=== PATIENT | female | born 1960 | race Caucasian/White ===

== ENCOUNTER → 2020-10-30 11:05 | Outpatient (BNVA) | payer OTHER, SELFPAY | PROVIDERS: Visit Provider Physician Assistant | DX: S39.012A Strain of muscle, fascia and tendon of lower back, initial encounter (principal); X50.9XXA Other and unspecified overexertion or strenuous movements or postures, initial encounter | CPT/HCPCS: 99202 ==

== ENCOUNTER → 2020-11-02 10:54 | Outpatient (BNVA) | payer OTHER, SELFPAY | PROVIDERS: Visit Provider Internal Medicine | DX: S39.012A Strain of muscle, fascia and tendon of lower back, initial encounter (principal); X58.XXXA Exposure to other specified factors, initial encounter | CPT/HCPCS: 99213 ==

== ENCOUNTER → 2020-11-05 14:26 | Outpatient (BNVA) | payer OTHER, SELFPAY | PROVIDERS: Visit Provider Internal Medicine | DX: S39.012A Strain of muscle, fascia and tendon of lower back, initial encounter (principal); X58.XXXA Exposure to other specified factors, initial encounter | CPT/HCPCS: 99213 ==

== ENCOUNTER → 2020-11-15 12:53 | Outpatient (BNVA) | payer OTHER, SELFPAY | PROVIDERS: PCP Internal Medicine; Visit Provider Internal Medicine | DX: S39.012A Strain of muscle, fascia and tendon of lower back, initial encounter (principal); X58.XXXA Exposure to other specified factors, initial encounter | CPT/HCPCS: 99213 ==

== ENCOUNTER → 2020-11-26 13:08 | Outpatient (BNVA) | payer OTHER, SELFPAY | PROVIDERS: PCP Internal Medicine; Visit Provider Internal Medicine | DX: S39.012A Strain of muscle, fascia and tendon of lower back, initial encounter (principal); X58.XXXA Exposure to other specified factors, initial encounter | CPT/HCPCS: 99213 ==

== ENCOUNTER → 2020-12-06 13:02 | Outpatient (BNVA) | payer OTHER, SELFPAY | PROVIDERS: PCP Internal Medicine; Visit Provider Internal Medicine | DX: S39.012D Strain of muscle, fascia and tendon of lower back, subsequent encounter (principal); X58.XXXD Exposure to other specified factors, subsequent encounter; M51.36 Other intervertebral disc degeneration, lumbar region | CPT/HCPCS: 72110; 99214 ==

== ENCOUNTER → 2020-12-20 13:11 | Outpatient (BNVA) | payer OTHER, SELFPAY | PROVIDERS: PCP Internal Medicine; Visit Provider Internal Medicine | DX: M51.27 Other intervertebral disc displacement, lumbosacral region (principal) | CPT/HCPCS: 99213 ==

== ENCOUNTER 2021-01-10 13:00 | Outpatient (RCR) | payer OTHER, SELFPAY ==
--- NOTE | 2020-11-12 16:21 | MHC.PT.EP ---
[facility] [place] Office [place] Office [place] Office [address] [phone] F: [phone] F: [phone] F: [phone] F: [phone] Physical Therapy Plan of Care Date of Evaluation: 11/12/20 Date of Surgery: Diagnosis: LUMBAR STRAIN Assessment: LUDY PRESENTS WITH DIAGNOSIS OF LUMBAR STRAIN FOLLOWING TWISTING INJURY AT WORK TWO WEEKS AGO. IMPAIRMENTS INCLUDE DECREASED LUMBAR AND LE ROM, DECREASED CORE AND LE STRENGTH, ALTERED POSTURE AND POSITIONING, DECREASED SOFT TISSUE MOBILITY, INCREASED PAIN. FUNCTIONAL LIMITATIONS INCLUDE DECREASED ABILITY TO PERFORM ADLs AND HOMEMAKING TASKS, DECREASED ABILITY TO PERFORM LIFTING, BENDING, SQUATTING AND REACHING, DECREASED ABILITY TO PERFORM WORK TASKS, DECREASED PARTICIPATION IN RECREATIONAL ACTIVITIES. Frequency and Duration: The patient will be seen 2 X WEEK FOR 5 WEEKS Short Term Goals: INITIATE HEP AND PROMOTE SELF MANAGEMENT OF SYMPTOMS Fci Goals: IN 5 WEEKS: FULL, PAIN FREE ROM OF LOW BACK AND LEFT LE LIFTING FLOOR TO WAIST UP TO 25# WITH CORRECT BODY MECHANICS AND NO VERBAL CUING FULL LE STRENGTH, EQUAL LENARD RTW FT/FD WITH PAIN NO GREATER THAN 2/10 AT WORST. Treatment Plan: Modalities to reduce pain, spasms and effusion. Manual therapy to restore motion and function. Therapeutic exercise to improve strength and flexibility. Neuromuscular re-education for posture and balance. Therapeutic activities to return to functional activities of daily living. Electronically signed by: RJ DUKE PT, DPT Please sign and return to therapist. Thank you for your referral.
== END 2021-01-21 08:00 | disposition home or self-care (01) ==
LOC: HO.PT 13:00
PROVIDERS: PCP Internal Medicine; Visit Provider Internal Medicine
DX: S39.012A Strain of muscle, fascia and tendon of lower back, initial encounter (principal); Z98.890 Other specified postprocedural states
CPT/HCPCS: 97110; 97140; 97161; 97530; 97535

== ENCOUNTER → 2021-01-10 14:01 | Outpatient (BNVA) | payer OTHER, SELFPAY | PROVIDERS: PCP Internal Medicine; Visit Provider Internal Medicine | DX: S39.012D Strain of muscle, fascia and tendon of lower back, subsequent encounter (principal); X58.XXXD Exposure to other specified factors, subsequent encounter | CPT/HCPCS: 99213 ==

== ENCOUNTER 2021-03-27 11:29 | Emergency (ER) | payer OTHER, SELFPAY ==
[2021-03-27 11:35] VITALS: BP 104/57; PULSE 66; RESP 18; TEMP 36.7; O2SAT 97; BMI 21.4
--- NOTE | 2021-03-27 12:12 | ED.BACK ---
HPI - Back Pain/Injury General Chief Complaint: Back Pain/Injury Stated Complaint: BACK PAIN INJ WORK Time Seen by Provider: 03/27/21 12:12 History of Present Illness HPI Narrative: Patient complains of right-sided back pain which began at work when she lifted a heavy object She was pulling a garbage bag from the trash in normally it is not heavy but today someone put something very heavy in the bag and she felt immediate sharp pain in the right side of her back that has become severe There is no numbness weakness or tingling there is no radiation of the pain at this time, no changes to bowel or bladder no other injury Related Data Previous Rx's Medication Instructions Recorded acetaminophen 500 mg tablet 1,000 mg PO QID PRN #30 tab 03/27/21 cyclobenzaprine 5 mg tablet 5 mg PO TID PRN #14 tab 03/27/21 ibuprofen 600 mg tablet 600 mg PO Q6H PRN #20 tab 03/27/21 lidocaine 5 % topical patch 1 patch TOPICAL DAILY PRN #15 ea 03/27/21 oxycodone 5 mg tablet 5 mg PO Q6H PRN #10 tab 03/27/21 Allergies Allergy/AdvReac Type Severity Reaction Status Date / Time No Known Allergies Allergy Verified 03/27/21 11:35 Review of Systems Review of Systems: Positive for right side back pain Negatives are no fever no chills no dizziness no weakness no headache no neck pain no chest pain no shortness of breath no abdominal pain no dysuria no burning with urination or frequency of urination no incontinence no changes to bowel or bladder no weakness no loss of sensation no radiation of pain Yes all other systems are reviewed and are negative PMFSH Past Medical History Source: nursing notes reviewed Medical History (Updated 03/27/21 @ 12:22 by KAYLYN Canchola) Migraines Surgical History (Updated 03/27/21 @ 11:39 by Christy Vanessa RN) History of back surgery Social History Social History Advance Directives: Yes Advance Directives Information Provided: Yes Advance Directives on File: No Patient : No Physical Exam Vital Signs: Vital Signs: Last Vital Signs Temp 98.1 F 03/27/21 11:35 Pulse 66 03/27/21 11:35 Resp 18 03/27/21 11:35 BP 104/57 L 03/27/21 11:35 Pulse Ox 97 03/27/21 11:35 Body Mass Index 21.4 General appearance no acute distress Head is normocephalic atraumatic Neck is supple The chest no respiratory distress The abdomen is soft nontender The back had right lower lumbar paraspinal tenderness no midline tenderness, pain is easily reproduced with movement, there is no CVA tenderness, the skin is normal no redness no rash no wound Extremities is full range of motion x4 Neuro is no focal motor or sensory deficit, patient can walk on toes, can walk on heels can squat Course Course Course Narrative: Patient with back pain after injury lifting something at work this morning is referred to work connection and treated for symptomatic relief and is discharged Discharge Plan Discharge Clinical Impression: Strain of lumbar region Patient Disposition: Home, Self-Care Additional Instructions: Follow with work connection for work related injury Return any time any worse condition or concerns Prescriptions: New acetaminophen 500 mg tablet 1,000 mg PO QID PRN (Reason: pain) Qty: 30 RF: 0 cyclobenzaprine 5 mg tablet 5 mg PO TID PRN (Reason: muscle spasm) Qty: 14 RF: 0 lidocaine 5 % adhesive patch,medicated 1 patch topical DAILY PRN (Reason: back pain) Qty: 15 RF: 0 oxycodone 5 mg tablet 5 mg PO Q6H PRN (Reason: pain) Qty: 10 RF: 0 ibuprofen 600 mg tablet 600 mg PO Q6H PRN (Reason: pain) Qty: 20 RF: 0 Referrals: [facility] [Provider Group] - 2 days (Back injury from lifting at work) Stand Alone Forms: Work/School Release
[2021-03-27] MEDS: Acetaminophen 325 MG TABLET 975 MG PO (12:17)
== END 2021-03-27 12:50 | disposition home or self-care (01) ==
PROVIDERS: Emergency Provider Emergency Medicine; PCP Internal Medicine
DX: S39.012A Strain of muscle, fascia and tendon of lower back, initial encounter (principal); X50.0XXA Overexertion from strenuous movement or load, initial encounter; Y93.F9 Activity, other caregiving; Y92.538 Other ambulatory health services establishments as the place of occurrence of the external cause; Y99.0 Civilian activity done for income or pay
CPT/HCPCS: 99283; 99284

== ENCOUNTER → 2021-03-29 09:18 | Outpatient (BNVA) | payer OTHER, SELFPAY | PROVIDERS: PCP Internal Medicine; Visit Provider Physician Assistant Medical | DX: S39.012A Strain of muscle, fascia and tendon of lower back, initial encounter (principal); X50.0XXA Overexertion from strenuous movement or load, initial encounter | CPT/HCPCS: 72110; 99203 ==

== ENCOUNTER → 2021-04-02 09:43 | Outpatient (BNVA) | payer OTHER, SELFPAY | PROVIDERS: PCP Internal Medicine; Visit Provider Physician Assistant Medical | DX: S39.012D Strain of muscle, fascia and tendon of lower back, subsequent encounter (principal); X58.XXXD Exposure to other specified factors, subsequent encounter | CPT/HCPCS: 99213 ==

== ENCOUNTER → 2021-04-11 09:39 | Outpatient (BNVA) | payer OTHER, SELFPAY | PROVIDERS: PCP Internal Medicine; Visit Provider Physician Assistant Medical | DX: S39.012D Strain of muscle, fascia and tendon of lower back, subsequent encounter (principal); X58.XXXD Exposure to other specified factors, subsequent encounter | CPT/HCPCS: 99213 ==

== ENCOUNTER → 2021-04-23 09:53 | Outpatient (BNVA) | payer OTHER, SELFPAY | PROVIDERS: PCP Internal Medicine; Visit Provider Physician Assistant Medical | DX: S39.012D Strain of muscle, fascia and tendon of lower back, subsequent encounter (principal); X58.XXXD Exposure to other specified factors, subsequent encounter | CPT/HCPCS: 99213 ==

== ENCOUNTER 2021-05-07 09:00 | Outpatient (RCR) | payer OTHER, SELFPAY ==
--- NOTE | 2021-04-05 16:06 | MHC.PT.EP ---
[facility] [place] Office [place] Office [place] Office [address] Rajwinder Harvey [address] [phone] F: [phone] F: [phone] F: [phone] F: [phone] Physical Therapy Plan of Care Date of Evaluation: Date of Surgery: Diagnosis: Acute R Lumbar Strain Assessment: Pt is a 60yo F who presents to PT with R low back pain after lifting at work. She recently received PT for a similar injury to L low back which has since resolved. She presents today with current impairments in pain, ROM, strength, muscle length, soft tissue restrictions, and body mechanics. She is limited functionally by prolonged standing, ambulation, bending, and squatting. She is an excellent candidate for skilled PT services to address current impairments and facilitate return to PLOF. Frequency and Duration: The patient will be seen 2x/week, 5 weeks Short Term Goals: Pt will be I with HEP to promote self management of symptoms Pt will report pain < 5/10 after functional mobility Horticultural Manager Goals: Pt will demonstrate full, pain-free ROM in all planes of lumbar spine. Pt will tolerate standing >30 min with pain < 2/10 to assist with work-related tasks. Pt will demonstrate improvements in functional mobility as evidenced by statistically significant improvement in Modified Oswestry Low Back Pain Disability Questionnaire Treatment Plan: Modalities to reduce pain, spasms and effusion. Manual therapy to restore motion and function. Therapeutic exercise to improve strength and flexibility. Neuromuscular re-education for posture and balance. Therapeutic activities to return to functional activities of daily living. Electronically signed by: Nancy Gray, PT, DPT Please sign and return to therapist. Thank you for your referral.
--- NOTE | 2021-05-07 10:18 | MHC.PT.DC ---
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 HER OSWESTRY SCORE TODAY AT D/C IS 0/50 AND AT EVAL IT WAS 19/50. Electronically signed by: Mary Sanches,PT Please sign and return to therapist. Thank you for your referral.
== END 2021-05-07 10:18 | disposition home or self-care (01) ==
LOC: HO.PT 09:00
PROVIDERS: PCP Internal Medicine; Visit Provider Physician Assistant Medical
DX: S39.012D Strain of muscle, fascia and tendon of lower back, subsequent encounter (principal)
CPT/HCPCS: 97110; 97140; 97161; 97530

== ENCOUNTER → 2022-05-30 13:57 | Outpatient (BNVA) | payer OTHER, SELFPAY | PROVIDERS: PCP Internal Medicine; Visit Provider Internal Medicine | DX: M79.672 Pain in left foot (principal) | CPT/HCPCS: 73630; 99203 ==

== ENCOUNTER → 2022-06-03 08:00 | Outpatient (BNVA) | payer OTHER, SELFPAY | PROVIDERS: PCP Internal Medicine; Visit Provider Internal Medicine | DX: M79.672 Pain in left foot (principal) | CPT/HCPCS: 99213 ==

== ENCOUNTER 2023-05-14 06:42 | Emergency (ER) | payer OTHER, SELFPAY ==
--- NOTE | ~2023-05-14 | XR_ITS ---
EXAMINATION: XR KNEE, LEFT CLINICAL INFORMATION: Acute medial knee pain after fall COMPARISON: None available. TECHNIQUE: Four views of the left knee. FINDINGS: No fracture or joint effusion. Alignment is anatomic. Joint spaces are maintained. No abnormal soft tissue calcification. XR/XR knee LT 4V IMPRESSION: No acute fracture or subluxation of the left knee.
[2023-05-14 07:10] VITALS: BP 113/59; PULSE 667; RESP 18; TEMP 36.6; O2SAT 98; BMI 19.2
--- NOTE | 2023-05-14 07:34 | ED.LOWEXIN ---
HPI - Extremity Injury (Lower) General Chief Complaint: Extremity Injury, Lower Stated Complaint: fall, difficulty doing anything physical Time Seen by Provider: 05/14/23 07:31 Source: patient Mode of arrival: ambulatory Limitations: no limitations History of Present Illness HPI Narrative: 62-year-old female presents with left knee pain. Patient fell on concrete steps yesterday landing onto her left knee. Since then she has been having medial left knee pain. The pain is moderate to severe. Worse with ambulation and palpation. Pain does not radiate. There is no numbness or tingling. The pain is aching and sharp in nature. She denies any joint swelling. She denies any head trauma, loss of consciousness he. There is no prodrome. Related Data Previous Rx's Medication Instructions Recorded acetaminophen 500 mg tablet 1,000 mg (2 x 500 mg) PO QID PRN 03/27/21 pain #30 tabs cyclobenzaprine 5 mg tablet 5 mg PO TID PRN muscle spasm #14 03/27/21 tabs ibuprofen 600 mg tablet 600 mg PO Q6H PRN pain #20 tabs 03/27/21 lidocaine 5 % topical patch 1 patch topical DAILY PRN back 03/27/21 pain #15 ea oxycodone 5 mg tablet 5 mg PO Q6H PRN pain #10 tabs 03/27/21 Allergies Allergy/AdvReac Type Severity Reaction Status Date / Time No Known Allergies Allergy Verified 05/14/23 07:08 Review of Systems Review of Systems: CONSTITUTIONAL: Denies weight loss, fever and chills. HEENT: Denies changes in vision and hearing. RESPIRATORY: Denies SOB and cough. CV: Denies palpitations no CP. GI: Denies abdominal pain, nausea, vomiting and diarrhea. : Denies dysuria and urinary frequency. MSK: + myalgia and joint pain. SKIN: Denies rash and pruritus. NEUROLOGICAL: Denies headache and syncope. PSYCHIATRIC: Denies recent changes in mood. Denies anxiety and depression. All other ROS are negative unless in HPI PMFSH Past Medical History Medical History Migraines Surgical History History of back surgery Social History Social History Advance Directives: No Physical Exam Vital Signs: Vital Signs: Last Vital Signs Temp 98 F 05/14/23 07:10 Pulse 667 H 05/14/23 07:10 Resp 18 05/14/23 07:10 BP 113/59 L 05/14/23 07:10 Pulse Ox 98 05/14/23 07:10 O2 Del Method Room Air 05/14/23 07:10 BMI result Body Mass Index 19.2 GEN: Well developed, no acute distress, alert, oriented HEENT: Normocephalic, atraumatic, normal external ears, nose appears normal Eyes: Normal to appearance Neck: Supple, no lymphadenopathy Respiratory: Talks in complete sentences, no respiratory distress Extremities: No clubbing cyanosis or edema, small ecchymoses over medial aspect of left knee, no joint instability, no laxity of joint with medial and lateral stress or anterior or posterior drawer sign Neurologic: No focal neurologic deficits, cranial nerves 2-12 intact, gait normal Skin: No rash Course Course Course Narrative: The workup is complete. X-ray shows no evidence of fracture. Suspect bone contusion is post internal knee injury. However, will refer patient to Occupational Health. In addition, I will provide her with a work note. We discussed analgesia. I did offer crutches but she prefers not to have them Medical Decision Making Medical Decision Making MDM Narrative: Patient presents with acute left traumatic knee pain. Differential diagnosis includes fracture, sprain, strain, contusion, internal knee derangement. Plan x-ray. Referred to Occupational Health. Patient may warrant crutches and analgesia. Differential Diagnosis Differential Diagnoses: The differential diagnosis associated with the presentation includes (See above) Independent Interpretation I performed an independent interpretation of an: Plain X-Ray (Left knee: No acute traumatic injury) Radiology Impression Discussion of test interpretation with radiology: I have reviewed the radiologist's reading. Radiologist Impression: Per radiologist, no acute fracture or subluxation Prescription Management I considered prescription management with: Pain Medication Discharge Plan Discharge Clinical Impression: Acute pain of left knee Patient Disposition: Home, Self-Care Instructions: Knee Pain (ED) Prescriptions: No Action acetaminophen 500 mg tablet 1,000 mg PO QID PRN (Reason: pain) Qty: 30 0RF cyclobenzaprine 5 mg tablet 5 mg PO TID PRN (Reason: muscle spasm) Qty: 14 0RF Rx Instructions: This medication may cause drowsiness so no driving for 8 hours after taking lidocaine 5 % adhesive patch,medicated 1 patch topical DAILY PRN (Reason: back pain) Qty: 15 0RF Rx Instructions: leave on most painful area for up to 12 hrs oxycodone 5 mg tablet 5 mg PO Q6H PRN (Reason: pain) Qty: 10 0RF Rx Instructions: Narcotic, no driving for 6 hours after taking this medication, may cause drowsiness ibuprofen 600 mg tablet 600 mg PO Q6H PRN (Reason: pain) Qty: 20 0RF Referrals: [facility] [Provider Group]
== END 2023-05-14 08:30 | disposition home or self-care (01) ==
PROVIDERS: Emergency Provider Emergency Medicine
DX: G89.11 Acute pain due to trauma (principal); M25.562 Pain in left knee
CPT/HCPCS: 73564; 99282; 99283

== ENCOUNTER → 2023-05-15 13:57 | Outpatient (BNVA) | payer OTHER, SELFPAY | PROVIDERS: Visit Provider Physician Assistant | DX: S89.92XA Unspecified injury of left lower leg, initial encounter (principal); W01.198A Fall on same level from slipping, tripping and stumbling with subsequent striking against other object, initial encounter | CPT/HCPCS: 99204 ==

== ENCOUNTER → 2023-05-19 10:28 | Outpatient (BNVA) | payer OTHER, SELFPAY | PROVIDERS: Visit Provider Physician Assistant Medical | DX: M25.562 Pain in left knee (principal); Z91.81 History of falling | CPT/HCPCS: 99213 ==

== ENCOUNTER 2023-05-20 08:55 | Outpatient (RCR) | payer OTHER, SELFPAY ==
--- NOTE | 2023-05-20 10:39 | MHC.PT.EP ---
[facility] [place] Office [place] Office [place] Office [address] Rajwinder Harvey [address] [phone] F: [phone] F: [phone] F: [phone] F: [phone] Physical Therapy Plan of Care Date of Evaluation: 05/20/23 Date of Surgery: Diagnosis: L knee injury (likely contusion) Assessment: 62 y/o female referred to PT from work connection for L knee injury, likely contusion. 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 Pt fell on concrete steps on 05/13/23 landing onto her left knee while at work resulting in pain and difficulty with sitting comfortably, sit <> stands, getting in/out of clawfoot tub, walking, and stairs. Examination shows decreased L knee AROM, decreased L hip/knee strength, L swelling, lag with SLR, and impaired gait pattern. Recommend PT 2x/week for 5 weeks to address impairments, implement HEP, and optimize functional mobility. Frequency and Duration: The patient will be seen 2x/week for 5 weeks Short Term Goals: 3 weeks Compliant with HEP Demonstrate SLR without lag Restorative Coordinator Goals: 5 weeks I with HEP and self management of sx Pt will improve L LE strength to 4/5 to faciliate walking Pt will be able to ascend/ descend stairs in step through pattern (intial rating step to) Pt will be able to stand > 30 minutes to perform job tasks with pain < 3/10 Treatment Plan: Modalities to reduce pain, spasms and effusion. Manual therapy to restore motion and function. Therapeutic exercise to improve strength and flexibility. Neuromuscular re-education for posture and balance. Therapeutic activities to return to functional activities of daily living. Electronically signed by: Aracelis Marie PT Please sign and return to therapist. Thank you for your referral.
--- NOTE | 2023-05-28 14:56 | MHC.PT.DC ---
[facility] [place] Office [place] Office [place] Office [address] Rajwinder Harvey 140 [facility] [phone] F: [phone] F: [phone] F: [phone] F: [phone] Physical Therapy Discharge Report Diagnosis: L knee injury (likely contusion) Date of Surgery: Date of Evaluation: 05/20/23 Date of Discharge: 05/28/23 Treatments to Date: 1 Cancellations to Date: 0 No Shows to Date: 0 Discharge Status: Patient Elected to Stop Discharge Summary: Pt called to cancel all appointments as workers compensation claim was denied. Electronically signed by: Aracelis Marie PT Please sign and return to therapist. Thank you for your referral.
== END 2023-05-28 14:56 | disposition home or self-care (01) ==
LOC: HO.PT 08:55
PROVIDERS: Visit Provider Physician Assistant
DX: S89.92XD Unspecified injury of left lower leg, subsequent encounter (principal)
CPT/HCPCS: 97110; 97162

== ENCOUNTER → 2023-06-02 09:21 | Outpatient (BNVA) | payer OTHER, SELFPAY | PROVIDERS: Visit Provider Physician Assistant Medical ==

== ENCOUNTER 2024-01-11 21:38 | Emergency (ER) | payer OTHER, SELFPAY ==
--- NOTE | ~2024-01-11 | XR_ITS ---
EXAMINATION: XR ABDOMEN KUB CLINICAL INDICATION: Constipation without pain COMPARISON: None available. TECHNIQUE: AP view of the abdomen. FINDINGS: At least 4 faceted gallstones are present in the gallbladder measuring about 1.6 cm each. Moderate stool is present throughout the colon with dense stool present in the left colon. There is mild gaseous distention of some small bowel. No definite evidence of bowel obstruction. The lung bases appear normal. Heart size is normal. XR/XR KUB IMPRESSION: 1. Cholelithiasis. 2. Moderate stool burden.
[2024-01-11 21:52] VITALS: BP 118/69; BP 132/71; PULSE 100; PULSE 89; RESP 18; TEMP 36.8; O2SAT 97; O2SAT 98; BMI 24.8
--- NOTE | 2024-01-11 23:03 | ED.GENADULT ---
HPI - General Adult General Chief complaint: General Medical Stated complaint: constipation w/o abd pain Time Seen by Provider: 01/11/24 21:54 Source: patient and EMS Mode of arrival: EMS Limitations: no limitations History of Present Illness HPI narrative: Patient using resident with chronic constipation comes here as not able to move her bowels for last 3 weeks no vomiting no abdominal distention or significant pain Related Data Previous Rx's ?Medication ?Instructions ?Recorded acetaminophen 500 mg tablet 1,000 mg (2 x 500 mg) PO QID PRN 03/27/21 pain #30 tabs cyclobenzaprine 5 mg tablet 5 mg PO TID PRN muscle spasm #14 03/27/21 tabs ibuprofen 600 mg tablet 600 mg PO Q6H PRN pain #20 tabs 03/27/21 lidocaine 5 % topical patch 1 patch topical DAILY PRN back 03/27/21 pain #15 ea oxycodone 5 mg tablet 5 mg PO Q6H PRN pain #10 tabs 03/27/21 polyethylene glycol 3350 17 17 g PO DAILY #510 grams 01/12/24 gram/dose oral powder (Miralax) Allergies Allergy/AdvReac Type Severity Reaction Status Date / Time No Known Allergies Allergy Verified 01/11/24 21:55 Review of Systems Review of Systems: Yes all other systems are reviewed and are negative PMFSH Past Medical History Medical History Migraines Surgical History History of back surgery Social History Social History Smoked in Last 30 Days: No Advance Directives: No Advance Directives Information Provided: No Do you have a plan to hurt others: No Plan Physical Exam ED Vital Signs: Vital Signs - 24 hr 01/11/24 21:52 01/11/24 23:53 01/12/24 01:49 Temperature 98.2 F 97.9 F 97.9 F Pulse Rate 100 94 94 Respiratory Rate 18 16 16 Blood Pressure 132/71 127/66 127/66 Pulse Oximetry 97 97 97 Oxygen Delivery Method Room Air Room Air Room Air BMI result Body Mass Index 24.8 Appearance: Alert. And awake No acute distress. Eyes: No pallor ENT: Pharynx normal. Oral Mucosa moist Neck: Normal inspection. Neck supple. CVS: Normal heart rate and rhythm. Pulses normal. Respiratory: No respiratory distress. Equal air entry bilateral, Abdomen: Soft and nontender. Bowel sounds are present, no mass palpable, no CVA tenderness rectal: Soft stool in the rectum Skin: Skin warm and dry. Normal skin color. Normal skin turgor. Extremities: No lower extremity edema. No calf tenderness Neuro: Alert and awake Discharge Plan Discharge Clinical Impression: Constipation Patient Disposition: [facility] Transfer Details: Patient had big bowel movement in the ER after manual disimpaction, continue stool softener Instructions: Constipation (ED) Additional Instructions: Continue MiraLax daily Prescriptions: New polyethylene glycol 3350 [Miralax] 17 gram/dose powder 17 g PO DAILY Qty: 510 0RF No Action acetaminophen 500 mg tablet 1,000 mg PO QID PRN (Reason: pain) Qty: 30 0RF cyclobenzaprine 5 mg tablet 5 mg PO TID PRN (Reason: muscle spasm) Qty: 14 0RF Rx Instructions: This medication may cause drowsiness so no driving for 8 hours after taking lidocaine 5 % adhesive patch,medicated 1 patch topical DAILY PRN (Reason: back pain) Qty: 15 0RF Rx Instructions: leave on most painful area for up to 12 hrs oxycodone 5 mg tablet 5 mg PO Q6H PRN (Reason: pain) Qty: 10 0RF Rx Instructions: Narcotic, no driving for 6 hours after taking this medication, may cause drowsiness ibuprofen 600 mg tablet 600 mg PO Q6H PRN (Reason: pain) Qty: 20 0RF Interventions: ED Discharge Assessment Last Done: 01/12/24 01:49 Discharge Date/Time: 01/12/24 01:50 Print Language: [place]
[2024-01-11 23:53] VITALS: BP 127/66; PULSE 94; RESP 16; TEMP 36.6; O2SAT 97
--- NOTE | 2024-01-11 23:55 | MHC.EDTECH ---
This tech took over care of patient at 2300,hourly rounds and vitals completed,upon entry to room patient was incot. of an extra large amount of stool,soft and brown,patient was cleaned,gonzalo-care given and all bed linen changed,call serrano in reach
[2024-01-12 01:49] VITALS: BP 127/66; PULSE 94; RESP 16; TEMP 36.6; O2SAT 97
== END 2024-01-12 01:50 | disposition skilled nursing facility (03) ==
PROVIDERS: Emergency Provider Internal Medicine
DX: K59.00 Constipation, unspecified (principal); R10.9 Unspecified abdominal pain
CPT/HCPCS: 74018; 99283; 99284

== ENCOUNTER 2024-05-05 20:20 | Emergency (ER) | payer OTHER, SELFPAY ==
[2024-05-05 20:20] VITALS: BP 153/42; PULSE 94; RESP 18; TEMP 36.7; O2SAT 100
[2024-05-05 20:47] VITALS: BMI 18.3
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
[2024-05-05 23:16] LABS: Anion Gap 14 (12-20); Blood Urea Nitrogen 26 mg/dL (9-16); Calcium 10.3 mg/dL (8.4-10.2); Carbon Dioxide 26 mmol/L (22-29); Chloride 105 mmol/L (96-108); Creatinine Clr Calc Pharmacy 51.3; Estimated Glomerular Filt Rate 58; Glucose Random 102 mg/dL (60-115); Potassium 4.2 mmol/L (3.3-5.1); Sodium 141 mmol/L (135-145)
[2024-05-05 23:57] LABS: Appearance Urine Cloudy; Color Urine Yellow; Glucose Urine UA Negative (Negative); Leukocyte Esterase Urine Trace (Negative); Nitrite Urine Negative (Negative); UMIC TRIGGER UACC YES; Urine Blood Moderate (2+) (Negative); Urine Ketones Trace mg/dL (Negative); Urine Protein Negative (Neg-Trace)
[2024-05-06] VITALS: BP 114/58; PULSE 68; RESP 12; TEMP 36.4; O2SAT 93
[2024-05-06 00:10] LABS: Bacteria Urine None Seen (None Seen); Hyaline Casts Urine 0-2 /LPF (0-2); Other Crystals Urine Present; RBC Urine >20 /HPF (0-2); Squamous Epithelial Cell Urine 0-2 /HPF (0-2); WBC Urine 0-5 /HPF (0-5)
[2024-05-06 01:27] LABS: Basophils Percent Auto 0.6 % (0-2); Eosinophils Absolute Auto 0.2 X10*3/uL (0.0-0.4); Eosinophils Percent Auto 3.7 % (0-4); Hematocrit 36.4 % (37.0-47.0); Hemoglobin 12.6 g/dl (12.0-16.0); Imm Gran Abs Auto 0.01 X10*3/uL (0.00-0.03); Imm Gran Pct Auto 0.2 % (0.0-0.4); Lymphocytes Absolute Auto 0.9 X10*3/uL (1.2-4.9); Lymphocytes Percent Auto 17.6 % (20-40); Mean Corpuscular HGB Conc 34.6 g/dl (31.0-35.0); Mean Corpuscular Hemoglobin 32.1 pg (27.0-33.0); Mean Corpuscular Volume 92.9 fL (80.0-98.0); Mean Platelet Volume 11.7 fL (9.4-12.3); Monocytes Absolute Auto 0.9 X10*3/uL (0.1-1.2); Monocytes Percent Auto 17.3 % (2-11); Neutrophils Percent Auto 60.6 % (45-73); Red Blood Count 3.92 X10*6/uL (4.20-5.50); Red Cell Distribution Width 12.5 % (11.0-16.0); White Blood Count 4.9 X10*3/uL (4.8-10.8)
[2024-05-06 01:28] LABS: MANUAL DIFF FLAG NO
[2024-05-06 01:44] LABS: Platelet Count 6 X10*3/uL (160-400)
[2024-05-06 02:38] LABS: Hematocrit 36.9 % (37.0-47.0); Hemoglobin 12.7 g/dl (12.0-16.0); Mean Corpuscular HGB Conc 34.4 g/dl (31.0-35.0); Mean Corpuscular Volume 92.9 fL (80.0-98.0); Red Blood Count 3.97 X10*6/uL (4.20-5.50); Red Cell Distribution Width 12.4 % (11.0-16.0); White Blood Count 4.4 X10*3/uL (4.8-10.8)
[2024-05-06 02:40] LABS: Platelet Count 5 X10*3/uL (160-400)
[2024-05-06] MEDS: predniSONE 20 MG TABLET 60 MG PO (03:11)
[2024-05-06] MEDS: Omeprazole 20 MG CAPSULE.DR PO (03:12)
--- NOTE | 2024-05-06 03:16 | PC.NURSE ---
report given to Ness at [facility] [phone] and educated on d/c instructions. awaiting ems transfer.
[2024-05-06 04:23] VITALS: BP 114/58; PULSE 68; RESP 12; TEMP 36.4; O2SAT 93
== END 2024-05-06 04:24 | disposition home or self-care (01) ==
PROVIDERS: Emergency Medicine; Emergency Provider Emergency Medicine; PCP Family Medicine Geriatric Medicine
DX: F41.8 Other specified anxiety disorders (principal); D69.3 Immune thrombocytopenic purpura; Z79.899 Other long term (current) drug therapy
CPT/HCPCS: 36415; 51701; 80048; 81001; 85025; 85027; 99283; 99284

== ENCOUNTER 2024-06-08 07:28 | Inpatient (IN) | payer MEDICAID, SELFPAY ==
[2024-06-08] VITALS (20 sets, daily range): BP systolic 90–133; BP diastolic 39–83; PULSE 62–98; RESP 14–20; TEMP 36.4–37; O2SAT 92–100; BMI 20.5
--- NOTE | 2024-06-08 | ECG_ITS ---
Test Reason : NAUSEA,ASSESS QTC FOR MEDS Blood Pressure : / mmHG Vent. Rate : 064 BPM Atrial Rate : 064 BPM P-R Int : 130 ms QRS Dur : 084 ms QT Int : 402 ms P-R-T Axes : 072 044 058 degrees QTc Int : 414 ms Normal sinus rhythm Normal ECG No previous ECGs available Referred By: Brooke Zuñiga Electronically Signed By:LARS BARRERA MD
--- NOTE | ~2024-06-08 | CT_ITS ---
EXAMINATION: CT ABDOMEN AND PELVIS WITHOUT CONTRAST CLINICAL INFORMATION: Severe right flank pain COMPARISON: None available. TECHNIQUE: Multidetector volumetric imaging was performed of the abdomen and pelvis without contrast. No oral contrast material.. Sagittal and coronal reformatted images were obtained on the technologist's workstation. This CT examination was performed using dose optimization techniques as appropriate, variously including the following: *Automated exposure control *Adjustment of mA and/or kV according to patient size (this includes techniques or standardized protocols for targeted exams where dose is matched to indication/reason for exam; i.e. extremities or head) *Use of iterative reconstruction technique DLP: 442.11 mGy-cm FINDINGS: LUNG BASES: The visualized lung bases are unremarkable. LIVER, GALLBLADDER, AND BILIARY TREE: The liver is normal in size, shape, and attenuation. No focal hepatic lesion or biliary ductal dilatation is present. Multiple calculi are evident within the gallbladder. No wall thickening or pericholecystic edema is present. PANCREAS: Unremarkable SPLEEN: Unremarkable ADRENAL GLANDS: Unremarkable KIDNEYS AND URETERS: Mild to moderate right hydroureteronephrosis is present to at least the level of the distal ureter. There appears to be an ovoid 7 x 4 mm calculus at the right ureterovesical junction. There are, however, multiple bilateral pelvic phleboliths, which make complete confirmation challenging. The suspected right ureteropelvic vesicle junction calculus measures 580 Hounsfield units. There are multiple additional intrarenal calculi in the right kidney, the largest in the midpole measuring 10 x 9 mm and measuring 400 Hounsfield units. An irregular 9 mm calculus in the lower pole the right kidney also measures approximately 400 Hounsfield units. No intrarenal calculi are evident. In the left upper quadrant, inseparable from the medial upper pole the left kidney, there is a complex cystic ovoid mass measuring 5.6 x 4.1 cm. The wall is thick and partially calcified. The mass is inseparable from the posterior aspect of the pancreatic body, and exerts mass effect upon the left renal artery and vein. BLADDER: Intrinsically Unremarkable GASTROINTESTINAL TRACT: Fecal material is evident throughout the colon consistent with constipation. No dilated small bowel loops are evident. The appendix is not visualized with certainty. A [id number] sliding hiatal hernia is present. ABDOMINAL WALL: No significant hernia is appreciated. LYMPH NODES: Normal VASCULAR: Unremarkable PELVIC VISCERA: Unremarkable OSSEOUS STRUCTURES: Generalized demineralization is noted as is a severe compression fracture of T10. CT/CT abdomen pelvis wo IV con IMPRESSION: 1. Mild to moderate right hydroureteronephrosis to the level of the distal ureter, where there appears to be a 7 x 4 mm calculus at the ureterovesical junction. This would be confirmed with a CT urogram, as multiple pelvic phleboliths preclude definite confirmation. 2. Multiple additional nonobstructing right intrarenal calculi. 3. Complex cystic mass in the left upper quadrant, inseparable from the medial upper pole of the left kidney. Although most likely an exophytic complex cystic left renal mass, the lesion is indeterminant and would be better assessed by pre and postcontrast abdominal CT. 4. Cholelithiasis. 5. Severe T10 compression fracture. 6. Severe constipation Fleischner guidelines were followed. Electronically signed by: Dwayne Chang MD 06/08/2024 10:07 AM EDT
--- NOTE | ~2024-06-08 | CT_ITS ---
EXAMINATION: CT HEAD WITHOUT CONTRAST CLINICAL INFORMATION: Headache COMPARISON: None available. TECHNIQUE: Contiguous axial imaging was performed from the skull base to vertex without intravenous administration of contrast. This CT examination was performed using dose optimization techniques as appropriate, variously including the following: *Automated exposure control *Adjustment of mA and/or kV according to patient size (this includes techniques or standardized protocols for targeted exams where dose is matched to indication/reason for exam; i.e. extremities or head) *Use of iterative reconstruction technique DLP: 1072 mGy-cm FINDINGS: There is no evidence of acute intracranial hemorrhage or edematous large vessel territorial infarction. No abnormal mass effect or midline shift is seen. [place] to white matter differentiation is well preserved. No abnormal extra-axial fluid collections are identified. The ventricles are normal in size. Mild patchy periventricular and deep white matter hypodensity suggesting chronic microangiopathy. No acute calvarial fracture.. Paranasal sinuses and mastoid air cells are well-aerated. CT/CT head/brain wo IV con IMPRESSION: No CT evidence of acute intracranial hemorrhage or edematous territorial infarction.. Electronically signed by: Constantin Casas MD 06/08/2024 09:39 AM EDT
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
[2024-06-08] MEDS: HYDROmorphone HCl 1 MG/ML SYRINGE IVPUSH ×3 (08:11→17:51)
[2024-06-08 08:25] LABS: MANUAL DIFF FLAG NO
[2024-06-08 08:28] LABS: Basophils Percent Auto 0.4 % (0-2); Eosinophils Percent Auto 0.4 % (0-4); Hematocrit 42.2 % (37.0-47.0); Imm Gran Abs Auto 0.03 X10*3/uL (0.00-0.03); Imm Gran Pct Auto 0.6 % (0.0-0.4); Lymphocytes Absolute Auto 1.2 X10*3/uL (1.2-4.9); Lymphocytes Percent Auto 26.7 % (20-40); Mean Corpuscular HGB Conc 33.2 g/dl (31.0-35.0); Mean Corpuscular Hemoglobin 32.3 pg (27.0-33.0); Mean Corpuscular Volume 97.2 fL (80.0-98.0); Mean Platelet Volume 9.7 fL (9.4-12.3); Monocytes Percent Auto 0.9 % (2-11); Neutrophils Absolute Auto 3.3 x10*3/uL (2.0-8.3); Platelet Count 183 X10*3/uL (160-400); Red Blood Count 4.34 X10*6/uL (4.20-5.50); Red Cell Distribution Width 13.9 % (11.0-16.0); White Blood Count 4.6 X10*3/uL (4.8-10.8)
[2024-06-08 09:08] LABS: Alanine Aminotransferase 48 U/L (0-31); Albumin Level 4.1 g/dL (3.5-5.0); Alkaline Phosphatase 61 U/L (39-117); Anion Gap 13 (12-20); Aspartate Amino Transferase 23 U/L (5-31); Bilirubin Direct 0.1 mg/dL (0.0-0.5); Bilirubin Total 0.4 mg/dL (0.0-1.0); Blood Urea Nitrogen 21 mg/dL (9-16); Calcium 10.8 mg/dL (8.4-10.2); Carbon Dioxide 31 mmol/L (22-29); Chloride 104 mmol/L (96-108); Creatinine Clr Calc Pharmacy 70.5; Estimated Glomerular Filt Rate > 60; Glucose Random 93 mg/dL (60-115); Magnesium 2.4 mg/dL (1.6-2.6); Potassium 4.2 mmol/L (3.3-5.1); Sodium 144 mmol/L (135-145); Total Protein 7.4 g/dL (6.5-8.0)
[2024-06-08] MEDS: Tamsulosin HCL 0.4 MG CAPSULE PO (11:07)
[2024-06-08] MEDS: Acetaminophen 325 MG TABLET 975 MG PO (11:07)
[2024-06-08 12:16] LABS: Appearance Urine Cloudy; Color Urine Dark Yellow; Glucose Urine UA Negative (Negative); Leukocyte Esterase Urine Large (3+) (Negative); Nitrite Urine Positive (Negative); PH 7.5 (5.0-9.0); UMIC TRIGGER UACC YES; Urine Blood Large (3+) (Negative); Urine Ketones Negative (Negative); Urine Protein 100 (2+) mg/dL (Neg-Trace)
[2024-06-08 12:18] LABS: Bacteria Urine 4+ (None Seen); Hyaline Casts Urine 0-2 /LPF (0-2); RBC Urine >20 /HPF (0-2); Squamous Epithelial Cell Urine 0-2 /HPF (0-2); UACC Culture Trigger YES; WBC Urine >50 /HPF (0-5)
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
--- NOTE | 2024-06-08 12:54 | PM.UROCN ---
History of Present Illness Consult details Consult date: 06/08/24 Narrative: CC: Right lower quadrant sudden onset pain 63-year-old female Bed-bound following spinal compression fracture Awoken from sleep with right-sided abdominal pain this morning Associated nausea Denies fever, chills, hematuria WBC 4.6, UA positive, Imaging - CT Mild to moderate right hydroureteronephrosis is present to at least the level of the distal ureter. There appears to be an ovoid 7 x 4 mm calculus at the right ureterovesical junction Discussed plan for intervention with cystoscopy, laser lithotripsy, stent placement Review of Systems Constitutional: Constitutional: Reports as per HPI and Reports no additional constitutional complaints Cardiovascular: Cardiovascular: Reports as per HPI and Reports no additional cardiovascular complaints Respiratory: Respiratory: Reports as per HPI and Reports no additional respiratory complaints Gastrointestinal: Gastrointestinal: Reports as per HPI and Reports no additional gastrointestinal complaints Genitourinary: Genitourinary: Reports as per HPI Musculoskeletal: Musculoskeletal: Reports no additional musculoskeletal complaints and Reports as per HPI Neurologic: Reports system reviewed and no additional complaints, except as documented and Reports as per HPI [facility] Past Medical History Medical History (Updated 06/08/24 @ 12:51 by KAYLYN Noyola) Chronic constipation Paraplegia following spinal cord injury Migraines Surgical History Surgical History History of back surgery Social History Social History Smoked in Last 30 Days: No Use of substances other than those prescribed or required for medical reasons: No Advance Directives: No Advance Directives Information Provided: No Do you have a plan to hurt others: No Plan Meds Allergies Allergy/AdvReac Type Severity Reaction Status Date / Time No Known Allergies Allergy Verified 06/08/24 07:51 Active Medications: Current Medications Ceftriaxone Sodium 1 gm/ (Sodium Chloride) 50 mls @ 100 mls/hr IV ONCE ONE Stop: 06/08/24 12:55 Physical Exam Vital Signs: Vital Signs: Last Vital Signs Temp 98.5 F 06/08/24 07:52 Pulse 89 06/08/24 07:52 Resp 16 06/08/24 11:03 BP 133/83 06/08/24 07:52 Pulse Ox 97 06/08/24 07:52 O2 Del Method Room Air 06/08/24 07:52 BMI result Body Mass Index 20.5 Const: General: cooperative, healthy appearing, comfortable and no acute distress Orientation/consciousness: patient oriented x3 HEENT: Face and sinus: Yes normal facial exam Mouth: moist mucous membranes Neck: Neck: Yes normal visual inspection, Yes full ROM and Yes trachea midline Chest: Chest palpation & inspection: normal inspection of the chest Resp: Effort & Inspection: normal respiratory effort, able to speak in complete sentences and no respiratory distress GI: Inspection: Yes normal to inspection Back/Spine/Pelvis: Cervical Spine: normal cervical lordosis Thoracic/Lumbar Spine: thoracic and lumbar spine normal to inspection Skin: General skin exam: no rashes or lesions noted Neuro: General: patient oriented x3, tone normal and moves all extremities Extrem: General: Yes normal to inspection and Yes capillary refill normal Results Labs 06/08/24 08:20 06/08/24 08:20 Labs: Abnormal lab results 06/08/24 06/08/24 Range/Units 08:20 12:01 WBC 4.6 L (4.8-10.8) X10*3/uL Immature Gran % (Auto) 0.6 H (0.0-0.4) % [place] % (Auto) 0.9 L (2-11) % [place] # (Auto) 0.0 L (0.1-1.2) X10*3/uL Carbon Dioxide 31 H (22-29) mmol/L BUN 21 H (9-16) mg/dL Calcium 10.8 H (8.4-10.2) mg/dL ALT 48 H (0-31) U/L Urine Protein 100 (2+) H (Neg-Trace) mg/dL Urine Blood Large (3+) H (Negative) Urine Nitrite Positive H (Negative) Ur Leukocyte Esterase Large (3+) H (Negative) Urine RBC >20 H (0-2) /HPF Urine WBC >50 H (0-5) /HPF Short CBC 06/08/24 Range/Units 08:20 WBC 4.6 L (4.8-10.8) X10*3/uL Hgb 14.0 (12.0-16.0) g/dl Hct 42.2 (37.0-47.0) % Plt Count 183 D (160-400) X10*3/uL BMP 06/08/24 08:20 Sodium 144 Potassium 4.2 Chloride 104 Carbon Dioxide 31 H BUN 21 H Creatinine 0.79 Calcium 10.8 H Liver Function 06/08/24 Range/Units 08:20 Total Bilirubin 0.4 (0.0-1.0) mg/dL Direct Bilirubin 0.1 (0.0-0.5) mg/dL AST 23 (5-31) U/L ALT 48 H (0-31) U/L Alkaline Phosphatase 61 (39-117) U/L Albumin 4.1 (3.5-5.0) g/dL Urine 06/08/24 Range/Units 12:01 Urine Color Dark Yellow Urine Appearance Cloudy Urine pH 7.5 (5.0-9.0) Ur Specific [place] 1.010 (1.005-1.025) Urine Protein 100 (2+) H (Neg-Trace) mg/dL Urine Glucose (UA) Negative (Negative) mg/dL All other labs normal. Assessment and Plan (1) Hydronephrosis with obstructing calculus: Status: Acute Plan Ureteroscopy We discussed the nature of the decision and reasonable alternatives for performing ureteroscopy. Options such as medical therapy were discussed. Interventions include chemical dissolution, ESWL, ureteroscopy with laser lithotripsy and stent placement, PCNL. The relative uncertainties and benefits related to each alternate procedure were adequately discussed. General surgical risks including, but not limited to - pain, bleeding, infection, myocardial infarction, pulmonary embolus, deep vein thrombosis and cerebrovascular accident which may result in further hospitalization were discussed. Full disclosure of the procedure as well as all major risks, benefits and complications were discussed including but not limited to damage to the urethra, bladder and kidney infection, damage to the ureter, stent migration or malposition, scarring to the renal pelvis, remnant stone fragments, subsequent stone passage with need for secondary procedures. The overall secondary procedure rate is approximately 10-15%. The overall clearance rate is approximately 90-95%. Success of the procedure in the short-term does not necessarily guarantee that long-term success will be maintained. Suitable follow up will need to be maintained. The patient showed understanding of discussion and wishes to proceed with - cystoscopy, retrograde, ureteroscopy, possible lithotripsy/stone basketing and stent on the right side Procedures Date of Service Date of Service: 06/08/24
--- NOTE | 2024-06-08 13:14 | PHA.MEDREC ---
Addendum entered by Temo Veras RPh 06/08/24 13:37: Reviewed by [facility] - Pt is currently on a prednisone taper, and has 1 day remaining of 20mg before reducing down to 10mg for 3 days. Original Note: Pharmacy Consult ? Medication Reconciliation Pharmacy has completed the medication reconciliation. Confirmed medications with list provided by [facility] Dickinson on [address].
[2024-06-08] MEDS: cefTRIAXone sodium 1 GM in 0.9 % Sodium Chloride 50 ML IV (13:15)
[2024-06-08] MEDS: Lactated Ringers 1,000 ML 100 ML IVCONT ×2 (13:34→21:04)
--- NOTE | 2024-06-08 13:49 | PC.NURSE ---
Call placed to [facility], where Pt resides @ [phone]. Spoke with BRINDA Ojeda re: Pts disposition. Rusty made aware that Pt is now admitted and is slotted for surgery later today d/t R sided kidney stone. Rusty offers no questions as this time.
--- NOTE | 2024-06-08 14:32 | MHC.CM.ED ---
Patient currently admitted in ER. Received telephone call from Sofía Foster of [facility] on [address]. Per Sofía, patient's [employer] is no longer active and patient was recently approved for [facility]. [facility] will not be able to accept patient back because they are not contracted with [employer]. Recommended referral to [facility]. Continue to monitor for d/c needs.
--- NOTE | 2024-06-08 16:04 | PC.NURSE ---
assumed care of pt at 1600. Report received from Amaris JARVIS.
[2024-06-08] MEDS: ondansetron HCL 4 MG/2 ML VIAL IVPUSH (16:05)
--- NOTE | 2024-06-08 18:54 | P.CONAN_ITS ---
HPI - Anesthesia Eval Consult details Narrative: Right uretetr stone PMFSH Active Problems Active Problems: All Active Problems Pyelonephritis (Acute) Acute UTI (Acute) Hydronephrosis with obstructing calculus (Acute) Lumbar back sprain (Acute 10/30/20) Past Medical History Medical History (Updated 06/08/24 @ 13:22 by Brooke Zuñiga PA-C) Chronic constipation Paraplegia following spinal cord injury Migraines Functional capacity: wheelchair bound Family History Family history of problems with anesthesia: No Surgical History Surgical History History of back surgery History of Problems with Anesthesia: No Social History Social History Smoked in Last 30 Days: No Use of substances other than those prescribed or required for medical reasons: No Advance Directives: No Advance Directives Information Provided: No Do you have a plan to hurt others: No Plan Meds Allergies Allergy/AdvReac Type Severity Reaction Status Date / Time No Known Allergies Allergy Verified 06/08/24 07:51 Active Medications: Current Medications Acetaminophen (Acetaminophen 325 Mg Tablet) 650 mg PO Q6H PRN PRN Reason: Pain, Mild (Pain Scale 1-3), fever or headache Calcium Carbonate (Calcium Carbonate 750 Mg Tab.Chew) 750 mg PO Q4H PRN PRN Reason: Heartburn Folic Acid (Folic Acid 1 Mg Tablet) 1 mg PO DAILY CARLOS Gabapentin (Gabapentin 300 Mg Capsule) 300 mg PO TID [facility] Last Admin: 06/08/24 16:02 Dose: Not Given Hydromorphone HCl (Hydromorphone Hcl 1 Mg/Ml Syringe) 1 mg IVPUSH Q4H PRN; Protocol PRN Reason: Pain, Severe (Pain Scale 7-10) Last Admin: 06/08/24 17:51 Dose: 1 mg Lactated Ringer's (Lr) 1,000 mls @ 100 mls/hr IVCONT .Q10H [facility] Last Admin: 06/08/24 13:34 Dose: 100 mls/hr Ceftriaxone Sodium 1 gm/ (Sodium Chloride) 50 mls @ 100 mls/hr IV Q24H [facility] Lidocaine (Lidocaine 4 % Patch Adh..Patch) 1 patch TRANSDERMA DAILY [facility] Magnesium Hydroxide (Milk Of Magnesia 30 Ml Oral.Susp) 30 ml PO DAILY PRN PRN Reason: Constipation Melatonin (Melatonin 3 Mg Tablet) 6 mg PO BEDTIME PRN PRN Reason: Insomnia Omeprazole (Omeprazole 20 Mg Capsule.Dr) 20 mg PO DAILY@0630 [facility] Ondansetron HCl (Ondansetron Hcl 4 Mg/2 Ml Vial) 4 mg IVPUSH Q8H PRN PRN Reason: Nausea and Vomiting Last Admin: 06/08/24 16:05 Dose: 4 mg Prednisone (Prednisone 20 Mg Tablet) 20 mg PO DAILY [facility] Sodium Chloride (0.9 % Sodium Chloride Flush 3 Ml Syringe) 3 ml IVFLUSH QSHIFT CARLOS Last Admin: 06/08/24 16:02 Dose: Not Given Thiamine HCl (Thiamine Hcl 100 Mg Tablet) 100 mg PO DAILY [facility] Vitamin D (Cholecalciferol (Vitamin D3) 25 Mcg Tablet) 50 mcg PO DAILY [facility] Home Medications ?Medication ?Instructions ?Recorded ?Confirmed ?Last Taken ?Type acetaminophen 325 mg tablet 650 mg PO Q4H PRN Pain (Scale 06/08/24 06/08/24 Unknown History Score 1-3) acetaminophen 325 mg tablet 650 mg PO Q6H PRN Fever 06/08/24 06/08/24 Unknown History bisacodyl 10 mg rectal suppository 10 mg [place] DAILY PRN constipation if 06/08/24 06/08/24 Unknown History no result from MOM by next shift cholecalciferol (vitamin D3) 25 50 mcg PO DAILY 06/08/24 06/08/24 Unknown History mcg (1,000 unit) capsule diclofenac sodium 1 % topical gel 1 g topical DAILY 06/08/24 06/08/24 Unknown History docusate sodium 100 mg capsule 100 mg PO Q12H PRN Constipation 06/08/24 06/08/24 Unknown History folic acid 1 mg tablet 1 mg PO DAILY 06/08/24 06/08/24 Unknown History gabapentin 300 mg capsule 300 mg PO TID 06/08/24 06/08/24 Unknown History lidocaine 5 % topical patch 1 patch topical DAILY 06/08/24 06/08/24 Unknown History (Lidoderm) magnesium hydroxide 400 mg/5 mL 30 ml PO BEDTIME PRN Constipation, 06/08/24 06/08/24 Unknown History oral suspension (Milk of Magnesia) if no BM in 3 days nystatin 100,000 unit/gram topical 1 appl topical DAILY 06/08/24 06/08/24 Unknown History powder omeprazole 20 mg capsule,delayed 20 mg PO DAILY@0630 06/08/24 06/08/24 Unknown History release polyethylene glycol 3350 17 17 g PO DAILY PRN Constipation, if 06/08/24 06/08/24 Unknown History gram/dose oral powder (Miralax) No BM in past 72 hours prednisone 10 mg tablet 20 mg PO DAILY 06/08/24 06/08/24 Unknown History sennosides 8.6 mg tablet (senna) 17.2 mg PO BEDTIME PRN Constipation 06/08/24 06/08/24 Unknown History sodium phosphates 19 gram-7 118 ml [place] DAILY PRN Constipation, 06/08/24 06/08/24 Unknown History gram/118 mL enema (Fleet Enema) No result from Bisacodyl within 2hrs thiamine HCl (vitamin B1) 100 mg 100 mg PO DAILY 06/08/24 06/08/24 Unknown History tablet Exam Height,Weight and Vital Signs: Height 5 ft 9 in Weight 62.9 kg Last Vital Signs Temp 98.5 F 06/08/24 07:52 Pulse 89 06/08/24 14:59 Resp 16 06/08/24 14:59 BP 107/50 L 06/08/24 14:59 Pulse Ox 95 06/08/24 14:59 O2 Del Method Room Air 06/08/24 14:59 Pertinent Lab Results Pertinent Lab Results: Laboratory Tests 06/08/24 06/08/24 08:20 12:01 WBC 4.6 L RBC 4.34 Hgb 14.0 Hct 42.2 MCV 97.2 MCH 32.3 MCHC 33.2 RDW 13.9 Plt Count 183 D MPV 9.7 Immature Gran % (Auto) 0.6 H Neut % (Auto) 71.0 Lymph % (Auto) 26.7 [place] % (Auto) 0.9 L Eos % (Auto) 0.4 Baso % (Auto) 0.4 Lymph # (Auto) 1.2 [place] # (Auto) 0.0 L Eos # (Auto) 0.0 Baso # (Auto) 0.0 Abs Immat Gran (auto) 0.03 Absolute Neuts (auto) 3.3 Absolute Nucleated RBC 0.000 Nucleated RBC % (auto) 0.0 Sodium 144 Potassium 4.2 Chloride 104 Carbon Dioxide 31 H Anion Gap 13 BUN 21 H Creatinine 0.79 Estim Creat Clear Calc 70.5 Estimated GFR > 60 Random Glucose 93 Calcium 10.8 H Magnesium 2.4 Total Bilirubin 0.4 Direct Bilirubin 0.1 AST 23 ALT 48 H Alkaline Phosphatase 61 Total Protein 7.4 Albumin 4.1 Urine Color Dark Yellow Urine Appearance Cloudy Urine pH 7.5 Ur Specific [place] 1.010 Urine Protein 100 (2+) H Urine Glucose (UA) Negative Urine Ketones Negative Urine Blood Large (3+) H Urine Nitrite Positive H Ur Leukocyte Esterase Large (3+) H Urine RBC >20 H Urine WBC >50 H Ur Squamous Epith Cells 0-2 Urine Bacteria 4+ Hyaline Casts 0-2 Airway Mallampati Class: II TM Dist: >3cm Neck ROM: Full Loose/Missing/Broken Teeth: No Heart: RRR Lungs: CTA Assessment and Plan Assessment Anesthesia Assessment: Anesthesia Plan Discussed and Chart Reviewed Final Anesthetic Review Family History of Problems with Anesthesia: No History of Problems with Anesthesia: No NPO: Yes ASA Class: III and Emergency Final Preanesthetic Review: No Changes in Pt Med Stat, Meds/Allgs Chart Reviewed, Consent Obtained/Reviewed and Anes Risks/Benef Reviewed Patient Risk: Intermediate Procedure Risk: Low Anesthetic Plan Anesthetic Plan: GA Disposition: Standard PACU
--- NOTE | 2024-06-08 19:44 | P.OP_ITS ---
Operative Note Operative Note Date of Service: 06/08/24 Narrative: PreOperative Diagnosis: Distal right ureteric stone Post Operative Diagnosis: Distal right ureteric stone Procedure: - cystoscopy, right retrograde - right dilatation of ureteric orifice under fluoroscopy - right ureteroscopy, laser lithotripsy, stone basketing - right stent placement Surgeon: Dr Nick Rodney Anesthesia: General Indications for procedure: Paraplegic admission through emergency room with right lower quadrant pain. Stone seen on CT scan with hydronephrosis. Multiple stones within right kidney. UA positive nitrites. Procedure: After informed consent was verified the patient was brought to the operating room and placed in a supine position. Anesthesia was administered per protocol. The patient was placed in a modified dorsal lithotomy position and prepped and draped in a sterile fashion. Safety pause time-out and side of surgery were confirmed. Images were available for review. Antibiotic administration confirmed. A 22 [place] cystoscope was inserted per urethra. The urethra was without abnormality. The bladder was normal in its entirety. Both ureteric orifices were seen in normal position. Inflamed bladder with potential cystitis. The right ureteric orifice was cannulated and a retrograde examination was performed. Filling defect distal ureter . A Sensor guidewire was placed up to the level of the renal pelvis under fluoroscopy. The rigid cystoscope was removed. A Counce dilator was placed over the Sensor guidewire and used to dilate the ureteric orifice under fluoroscopy. The dilator was removed. The semi rigid ureteral scope was placed alongside the Sensor guidewire. A soft stone was encountered.. Using a 365 micro holmium laser fiber the stone was broken into small pieces using a combination of hammer and dusting techiques. There were no real fragments to be removed with a basket Once the fragments were removed a decision was made to place a ureteric stent. Based on the height of the patient a 6 Fr x 26 stent was used. The string was removed from the stent prior to placement A 6 [place] by 26 cm double-J stent was placed into the renal pelvis and bladder under a combination of fluoroscopy and direct visualization. The symphisis pubis was used as a radiographic marker to release the stent and good coil was seen within the bladder confirming position A 16 [place] Cardenas catheter was placed to allow continuous bladder emptying for the next 24 hours.. The patient tolerated the procedure well and was extubated in the operating room. They were transferred in stable condition to the recovery area. Pathology: No stones Drains: Double J stent as described above
[2024-06-08] MEDS: fentaNYL citrate/PF 100 MCG/2 ML VIAL 25 MCG IVPUSH ×6 (19:58→20:23)
[2024-06-08] MEDS: Gabapentin 300 MG CAPSULE PO (20:27)
[2024-06-08] MEDS: oxyCODONE HCl Immed Release 5 MG TABLET PO (20:59)
[2024-06-09] MEDS: Acetaminophen 325 MG TABLET 650 MG PO (03:20)
[2024-06-09] MEDS: Flu Vacc TS2024-25(6mos up)/PF 0.5 ML SYRINGE IM (03:33)
[2024-06-09 04:00] VITALS: BP 97/52; PULSE 80; RESP 16; TEMP 36.6; O2SAT 100
[2024-06-09] MEDS: Omeprazole 20 MG CAPSULE.DR PO (05:21)
[2024-06-09] MEDS: HYDROmorphone HCl 1 MG/ML SYRINGE IVPUSH (05:30)
[2024-06-09] MEDS: Lactated Ringers 1,000 ML 100 ML IVCONT ×2 (05:44→18:03)
[2024-06-09 07:53] LABS: MANUAL DIFF FLAG NO
[2024-06-09 07:56] LABS: Basophils Absolute Auto 0.1 X10*3/uL (0.0-0.2); Basophils Percent Auto 0.4 % (0-2); Eosinophils Percent Auto 0.3 % (0-4); Hematocrit 34.9 % (37.0-47.0); Hemoglobin 11.4 g/dl (12.0-16.0); Imm Gran Abs Auto 0.05 X10*3/uL (0.00-0.03); Imm Gran Pct Auto 0.4 % (0.0-0.4); Lymphocytes Absolute Auto 0.8 X10*3/uL (1.2-4.9); Lymphocytes Percent Auto 6.3 % (20-40); Mean Corpuscular HGB Conc 32.7 g/dl (31.0-35.0); Mean Corpuscular Hemoglobin 32.2 pg (27.0-33.0); Mean Corpuscular Volume 98.6 fL (80.0-98.0); Monocytes Absolute Auto 1.1 X10*3/uL (0.1-1.2); Neutrophils Absolute Auto 10.4 x10*3/uL (2.0-8.3); Neutrophils Percent Auto 83.6 % (45-73); Red Blood Count 3.54 X10*6/uL (4.20-5.50); White Blood Count 12.5 X10*3/uL (4.8-10.8)
[2024-06-09 08:00] VITALS: BP 117/59; RESP 18; TEMP 36.9
[2024-06-09 08:11] LABS: Anion Gap 10 (12-20); Blood Urea Nitrogen 21 mg/dL (9-16); Calcium 9.4 mg/dL (8.4-10.2); Carbon Dioxide 27 mmol/L (22-29); Chloride 105 mmol/L (96-108); Creatinine Clr Calc Pharmacy 78.4; Estimated Glomerular Filt Rate > 60; Glucose Random 93 mg/dL (60-115); Potassium 4.1 mmol/L (3.3-5.1); Sodium 138 mmol/L (135-145)
[2024-06-09] MEDS: Lidocaine 4 % Patch ADH..PATCH 1 PATCH TRANSDERMA (08:23)
[2024-06-09] MEDS: Folic Acid 1 MG TABLET PO (08:24)
[2024-06-09] MEDS: Gabapentin 300 MG CAPSULE PO ×3 (08:24→21:48)
[2024-06-09] MEDS: Thiamine HCL 100 MG TABLET PO (08:24)
[2024-06-09] MEDS: predniSONE 20 MG TABLET PO (08:24)
[2024-06-09] MEDS: Cholecalciferol (Vitamin D3) 25 MCG TABLET 50 MCG PO (08:24)
[2024-06-09 08:30] LABS: Platelet Count 135 X10*3/uL (160-400)
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
--- NOTE | 2024-06-09 09:04 | HO.POSTANES ---
Post Anesthesia Evaluation Post Anesthesia Evaluation Date of Service: 06/08/24 Vital Signs: Vital Signs Temp Pulse Resp BP Pulse Ox O2 Del Method 06/09/24 08:00 98.4 F 18 117/59 L Room Air 06/09/24 04:00 97.8 F 80 16 97/52 L 100 Room Air 06/08/24 23:35 97.6 F 74 16 90/52 L 94 Room Air 06/08/24 21:08 97.7 F 65 18 104/69 98 Room Air Anesthesia: General Mental Status: Awake Pain Control: Satisfactory Nausea/Vomiting: None Hydration: Adequate Anesthesia-Related Issues: No Anes. Related Issues
--- NOTE | 2024-06-09 11:23 | MHC.CM.PN ---
Addendum entered by Lyubov Alegre 06/10/24 13:19: [facility] HAS OFFERED PT A BED FOR STR TO LTC PT AND FAMILY ACCEPTING BED OFFER PT WILL DC TO [facility] TODAY VIA [facility] AT 1800 HOURS Original Note: CM MET WITH PT AND HCP AT BEDSIDE PT SENT IN FROM [facility] WHERE SHE HAS BEEN SINCE MID-DECEMBER PER HCP, PT LOST HER INSURANCE AND WAS ABLE TO PRIVATE PAY FOR A SHORT TIME, AND THEN HAD TO APPLY FOR HCP REPORTS SHE WAS SERVED WITH A 30 DAY NOTICE IN MARCH WHICH WAS APPEALED HCP ALSO REPORTS THE SW AT THE SNF DID NOT ASSIST IN FINDING A NEW PLACEMENT AND PT DOES NOT HAVE A HOME TO RETURN TO PT IS ALSO W/C BOUND AND REQUIRES ASSISTANCE WITH ALL CARE COPY OF HCP REQUESTED FROM [facility] LTC REFERRALS MADE [facility] STATING THEY WILL NOT TAKE PT BACK, HOWEVER UNCLEAR IF THIS IS ALLOWED DURING THE APPEAL PROCESS PER MD ROUNDS, PT IS MEDICALLY CLEARED PT DOES NOT HAVE MEDICARE AT THIS TIME, HCP IS WORKING ON GETTING IT PT HOPEFUL SHE COULD HAVE MORE REHAB PRIOR TO TRANSITIONING BACK TO LTC CURRENT PCP IS DAVID RODRÍGUEZ AT [facility] [place] PENDING BED OFFER OR [facility] AGREEING TO HER RETURN BLS TRANSPORT
[2024-06-09 11:31] VITALS: BP 92/54; PULSE 71; RESP 16; TEMP 36.6; O2SAT 95
[2024-06-09] MEDS: cefTRIAXone sodium 1 GM in 0.9 % Sodium Chloride 50 ML IV (12:23)
[2024-06-09 15:00] VITALS: BP 97/55; PULSE 78; RESP 16; TEMP 36.1; O2SAT 97
[2024-06-09 19:49] VITALS: BP 131/67; PULSE 77; RESP 16; TEMP 36.4; O2SAT 94
[2024-06-09 23:36] VITALS: BP 115/58; PULSE 70; RESP 18; TEMP 36.6; O2SAT 96
[2024-06-10 04:00] VITALS: BP 131/66; PULSE 88; RESP 18; TEMP 37.4; O2SAT 95
[2024-06-10] MEDS: Lactated Ringers 1,000 ML 100 ML IVCONT (04:01)
[2024-06-10] MEDS: Omeprazole 20 MG CAPSULE.DR PO (06:28)
[2024-06-10] MEDS: Folic Acid 1 MG TABLET PO (06:55)
[2024-06-10] MEDS: Gabapentin 300 MG CAPSULE PO ×2 (06:55→14:24)
[2024-06-10] MEDS: Thiamine HCL 100 MG TABLET PO (06:55)
[2024-06-10] MEDS: Cholecalciferol (Vitamin D3) 25 MCG TABLET 50 MCG PO (06:55)
[2024-06-10] MEDS: oxyCODONE HCl Immed Release 5 MG TABLET PO ×3 (06:55→14:24)
[2024-06-10] MEDS: predniSONE 20 MG TABLET PO (06:56)
[2024-06-10] MEDS: Lidocaine 4 % Patch ADH..PATCH 1 PATCH TRANSDERMA (06:56)
[2024-06-10 07:00] VITALS: BP 116/52; PULSE 98; RESP 18; TEMP 37.1; O2SAT 95
[2024-06-10] MEDS: Acetaminophen 325 MG TABLET 650 MG PO (07:00)
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
[2024-06-10 10:29] LABS: Hematocrit 35.3 % (37.0-47.0); Hemoglobin 12.2 g/dl (12.0-16.0); Mean Corpuscular HGB Conc 34.6 g/dl (31.0-35.0); Mean Corpuscular Hemoglobin 33.4 pg (27.0-33.0); Mean Corpuscular Volume 96.7 fL (80.0-98.0); Mean Platelet Volume 10.6 fL (9.4-12.3); Platelet Count 127 X10*3/uL (160-400); Red Blood Count 3.65 X10*6/uL (4.20-5.50); Red Cell Distribution Width 14.2 % (11.0-16.0); White Blood Count 10.9 X10*3/uL (4.8-10.8)
[2024-06-10 11:03] LABS: Anion Gap 10 (12-20); Blood Urea Nitrogen 12 mg/dL (9-16); Calcium 9.8 mg/dL (8.4-10.2); Carbon Dioxide 29 mmol/L (22-29); Chloride 103 mmol/L (96-108); Creatinine Clr Calc Pharmacy 72.3; Estimated Glomerular Filt Rate > 60; Glucose Random 144 mg/dL (60-115); Potassium 4.1 mmol/L (3.3-5.1); Sodium 138 mmol/L (135-145)
[2024-06-10 11:30] VITALS: BP 103/56; PULSE 75; RESP 16; TEMP 36.4; O2SAT 95
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
[2024-06-10] MEDS: cefTRIAXone sodium 1 GM in 0.9 % Sodium Chloride 50 ML IV (12:44)
[2024-06-10 15:08] VITALS: BP 102/63; PULSE 81; RESP 18; TEMP 36.7; O2SAT 96
== END 2024-06-10 18:00 | disposition skilled nursing facility (03) | DRG 446 ==
LOC: HO.ED 12:03 → HO.EDOVER 13:25 → HO.S3 19:19
PROVIDERS: Physician Assistant; Urology; Admitting Provider Physician Assistant; Emergency Provider Emergency Medicine; PCP Family Medicine Geriatric Medicine; Visit Provider Internal Medicine
PROC: 0TC68ZZ Extirpation of Matter from Right Ureter, Via Natural or Artificial Opening Endoscopic (ICD-10-PCS; principal; 2024-06-08 17:00)
DX: N13.6 Pyonephrosis (principal); D69.3 Immune thrombocytopenic purpura; G82.20 Paraplegia, unspecified; Z66 Do not resuscitate; N28.1 Cyst of kidney, acquired; K59.09 Other constipation; S24.104S Unspecified injury at T11-T12 level of thoracic spinal cord, sequela; V49.9XXS Car occupant (driver) (passenger) injured in unspecified traffic accident, sequela; Z74.01 Bed confinement status; Z87.891 Personal history of nicotine dependence; Z79.52 Long term (current) use of systemic steroids; Z79.899 Other long term (current) drug therapy
CPT/HCPCS: 36415; 70450; 74176; 80048; 80076; 81001; 83735; 85025; 85027; 87086; 87088; 87186; 90656; 93005; 99285; C1758; C1769; C2617; J0696; J1171; J2003; J2405; J2704; J3010; J7120; Q9967

== ENCOUNTER → 2024-06-08 08:06 | Outpatient (BNV) | payer MEDICAID, SELFPAY | PROVIDERS: Emergency Provider Emergency Medicine; Visit Provider Urology | DX: N13.2 Hydronephrosis with renal and ureteral calculous obstruction (principal) | CPT/HCPCS: 52356; 74420; 99284 ==

== ENCOUNTER 2024-06-08 13:04 | Outpatient (BNV) | payer MEDICAID, SELFPAY | END 2024-06-08 14:15 | PROVIDERS: Admitting Provider Physician Assistant; Emergency Provider Emergency Medicine; Visit Provider Internal Medicine Cardiovascular Disease | DX: R11.0 Nausea (principal) | CPT/HCPCS: 93010 ==

== ENCOUNTER → 2024-06-08 13:04 | Outpatient (BNV) | payer MEDICAID, SELFPAY | PROVIDERS: Admitting Provider Physician Assistant; Emergency Provider Emergency Medicine; Visit Provider Physician Assistant | DX: N13.2 Hydronephrosis with renal and ureteral calculous obstruction (principal); N10 Acute pyelonephritis | CPT/HCPCS: 99222; 99232; 99239 ==

== ENCOUNTER 2024-06-30 11:31 | Outpatient (AMB) | payer MEDICAID, SELFPAY ==
--- NOTE | 2024-06-30 11:35 | A.OFFVIS_ITS ---
Intake Visit Reasons: kidney stones/ inpatient follow up Intake Note: New patient is present for Kidney stones/Inpatient follow up Urology Med:None Antibiotic Allergy: None Blood Thinner: none CT Scan: 06/08/24 [employer] Required: No Allergies No Known Allergies Allergy (Verified 06/30/24 11:38) HPI Comments Details: Sandi is a pleasant female. She is a patient of . She is seen for the following urologic conditions - pyelonephritis with right renal stone Had been seen in hospital with distal right ureteric stone and significant pyelonephritis Was in urosepsis Positive E coli pansensitive Currently in rehab Has more stones within right renal kidney Recommend ureteroscopy with laser lithotripsy Imaging - Mild to moderate right hydroureteronephrosis is present to at least the level of the distal ureter. There are multiple additional intrarenal calculi in the right kidney, the largest in the midpole measuring 10 x 9 mm and measuring 400 Hounsfield units Recommend right ureteroscopy with laser lithotripsy Start on daily Bactrim to manage possible uroseptic stone PFSH Medical History (Updated 06/30/24 @ 11:49 by Nick Rodney MD) Chronic constipation Paraplegia following spinal cord injury Migraines Surgical History History of back surgery Social History Household Members: None Housing: [facility] Do you presently have visiting nurse or other home services: No (pt came from Rehab) Comment: tolerable Patient Tobacco Use Status: Former Tobacco user service: No Review of Systems Const Denies chills and Denies fever(s) Card Reports no additional complaints and Denies syncope Resp Denies cough GI Denies abdominal pain and Denies heartburn Reports as per HPI and Denies change in libido Neuro Denies syncope Psych Denies change in libido Endo Denies change in libido Physical Exam Const General: cooperative, healthy appearing, comfortable and no acute distress Orientation/consciousness: patient oriented x3 HEENT Face and sinus: Yes normal facial exam Mouth: moist mucous membranes Neck Neck: Yes normal visual inspection, Yes full ROM and Yes trachea midline Chest Chest palpation & inspection: normal inspection of the chest Resp Effort & Inspection: normal respiratory effort, able to speak in complete sentences and no respiratory distress GI Inspection: Yes normal to inspection Back/Spine/Pelvis Cervical Spine: normal cervical lordosis Thoracic/Lumbar Spine: thoracic and lumbar spine normal to inspection Skin General skin exam: no rashes or lesions noted Neuro General: patient oriented x3, gait normal, tone normal and moves all extremities Extrem General: Yes normal to inspection and Yes capillary refill normal Assessment & Plan Assessment & Plan (1) Nephrolithiasis: Code(s): N20.0 - Calculus of kidney Category: Medical Plan Risks, benefits and alternatives to therapy were discussed. These include but are not limited to infection, bleeding, damage to local organs and tissues, need for further interventions. Anesthetic risks regarding cardiac arrhythmia, blood clots, and potential mortality were discussed. The patient understands the typical recovery time and the outpatient nature of the procedure. After consideration of these risks the patient gives full informed consent and they wish to move ahead with the procedure. - cystoscopy, right stent removal, right retrograde, right ureteroscopy with laser lithotripsy stone basketing Medications: New sulfamethoxazole-trimethoprim 800-160 mg (Bactrim DS) 1 tab PO DAILY 28 days 28 tabs 0RF N20.0 - Calculus of kidney Patient Instructions: Imaging studies, laboratory and physical exam results were discussed and reviewed in detail. No major barriers to patient understanding were identified. An opportunity to ask questions regarding the treatment plan was provided. All questions were answered. The patient expressed understanding and agreement with the above treatment plan. The patient is aware they should contact our office by phone for worsening of their current condition or the appearance of new urologic symptoms. Compliance is encouraged with any medications and followup testing that is ordered. It is a privilege to participate in the urologic care of your patient. If you have any questions or concerns regarding treatment for the above conditions, or other urologic issues, please do not hesitate to contact me. The office telephone contact is [phone]. This note is constructed using voice recognition software. While every effort has been made to ensure accuracy ham marker errors may have been included. Yours sincerely, Dr Nick Rodney MD, [facility] - Urology Providers of Expert, Compassionate Care for the Genitourinary System Coding Level of Care Code Est Pt Level 4 (69363) Diagnoses Nephrolithiasis N20.0
== END 2024-06-30 11:53 | disposition home or self-care (01) ==
LOC: HO.HUSH 11:31
PROVIDERS: PCP Family Medicine Geriatric Medicine; Visit Provider Urology
DX: N20.0 Calculus of kidney (principal)
CPT/HCPCS: 99214

== ENCOUNTER → 2024-06-30 11:31 | Outpatient (BNVA) | payer MEDICAID, SELFPAY | PROVIDERS: PCP Family Medicine Geriatric Medicine; Visit Provider Urology | DX: N20.0 Calculus of kidney (principal) | CPT/HCPCS: 99212 ==

== ENCOUNTER 2024-07-05 19:53 | Emergency (ER) | payer MEDICAID, SELFPAY ==
--- NOTE | ~2024-07-05 | CT_ITS ---
EXAMINATION: CT ABDOMEN AND PELVIS WITH CONTRAST CLINICAL INFORMATION: Right lower quadrant abdominal pain COMPARISON: CT abdomen pelvis 06/08/24 TECHNIQUE: Multidetector volumetric imaging was performed from the superior aspect of the liver through the pubic symphysis with intravenous contrast. A total of 85 mL of Omnipaque 350 was utilized for the study. Sagittal and coronal reformatted images were obtained on the technologist's workstation. This CT examination was performed using dose optimization techniques as appropriate, variously including the following: *Automated exposure control *Adjustment of mA and/or kV according to patient size (this includes techniques or standardized protocols for targeted exams where dose is matched to indication/reason for exam; i.e. extremities or head) *Use of iterative reconstruction technique DLP: 610 mGy-cm FINDINGS: LUNG BASES: There is mild emphysema and bronchial thickening. LIVER, GALLBLADDER, AND BILIARY TREE: The liver is normal in size, shape, and attenuation. No focal hepatic lesion or biliary ductal dilatation is present. The gallbladder contains 4 large faceted gallstones at about 1.3 cm in size each. There are nom obvious pericholecystic inflammatory changes. PANCREAS: Unremarkable. SPLEEN: Unremarkable. ADRENAL GLANDS: There is an ovoid mass present in the left suprarenal region measuring 4.8 x 4.2 x 5.7 cm. This is water density with a partially calcified rim. The mass abuts the left adrenal gland, the pancreatic tail as well as the left kidney. KIDNEYS AND URETERS: There are multiple stones scattered throughout the right kidney with a internal indwelling double-J right ureteral stent in place. In the right renal pelvis, there is some high attenuation areas measuring 34 Hounsfield units adjacent to the fluid filled pelvis measuring -15 HU. No left-sided calculi are present. The BLADDER: Unremarkable. GASTROINTESTINAL TRACT: A small hiatal hernia is present. The rectum is distended with stool more so than prior with a diameter of 6.9 cm. Some rectal wall thickening is seen along with some perirectal inflammatory change in the surrounding fat moderate stool burden present in the remainder of the colon The small and large bowel are unremarkable. The appendix is unremarkable. ABDOMINAL WALL: No significant hernia is appreciated. LYMPH NODES: No retroperitoneal lymphadenopathy. VASCULAR: Calcific atherosclerotic changes are present in the aorta and iliofemoral vessels. There is no evidence of an abdominal aortic aneurysm. PELVIC VISCERA: The uterus is retroverted. An abnormal adnexal mass is not seen. OSSEOUS STRUCTURES: Degenerative changes are seen throughout the spine. There is a compression fracture present involving T9. CT/CT abdomen pelvis w IV con IMPRESSION: 1. The rectum is distended with stool with some rectal wall thickening and perirectal inflammatory change. Findings are suggestive of stercoral colitis. 2. Multiple right-sided renal calculi with double-J ureteral stent in place. 3. Cholelithiasis without cholecystitis. 4. 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 This is water density and unchanged when compared to the prior study. 5. Other incidental findings as described above. Fleischner guidelines were followed. Electronically signed by: Karthik Naik MD 07/06/2024 12:45 AM [facility] MILAN
[2024-07-05 20:01] VITALS: BP 112/61; PULSE 81; O2SAT 94
[2024-07-05 20:09] VITALS: BP 121/55; PULSE 73; RESP 18; TEMP 36.8; O2SAT 96
[2024-07-05 20:22] VITALS: BP 106/60; PULSE 66; RESP 20; TEMP 36.9; O2SAT 93; BMI 21.3
--- NOTE | 2024-07-05 20:29 | PC.NURSE ---
Pt. reports intermittent 10/10 rectal pain, describes it as shooting in nature.
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
[2024-07-05 22:08] VITALS: BP 100/58; PULSE 74; RESP 18; TEMP 36.7; O2SAT 92
[2024-07-05] MEDS: ondansetron HCL 4 MG/2 ML VIAL IVPUSH (22:44)
[2024-07-05] MEDS: 0.9 % Sodium Chloride 1,000 ML 999 ML IV (22:44)
[2024-07-05] MEDS: Sodium Phosphate,Mono-Dibasic 133 ML ENEMA PR (22:44)
[2024-07-05 23:01] LABS: MANUAL DIFF FLAG NO
[2024-07-05 23:02] LABS: Basophils Percent Auto 0.3 % (0-2); Eosinophils Absolute Auto 0.1 X10*3/uL (0.0-0.4); Eosinophils Percent Auto 1.6 % (0-4); Hematocrit 34.1 % (37.0-47.0); Hemoglobin 11.4 g/dl (12.0-16.0); Imm Gran Abs Auto 0.01 X10*3/uL (0.00-0.03); Imm Gran Pct Auto 0.1 % (0.0-0.4); Lymphocytes Absolute Auto 1.2 X10*3/uL (1.2-4.9); Lymphocytes Percent Auto 16.8 % (20-40); Mean Corpuscular HGB Conc 33.4 g/dl (31.0-35.0); Mean Corpuscular Volume 95.8 fL (80.0-98.0); Monocytes Absolute Auto 0.8 X10*3/uL (0.1-1.2); Neutrophils Absolute Auto 4.8 x10*3/uL (2.0-8.3); Neutrophils Percent Auto 69.2 % (45-73); Platelet Count 188 X10*3/uL (160-400); Red Blood Count 3.56 X10*6/uL (4.20-5.50); Red Cell Distribution Width 12.3 % (11.0-16.0)
[2024-07-05 23:18] LABS: Alanine Aminotransferase 14 U/L (0-31); Albumin Level 3.7 g/dL (3.5-5.0); Alkaline Phosphatase 62 U/L (39-117); Anion Gap 14 (12-20); Aspartate Amino Transferase 25 U/L (5-31); Bilirubin Direct 0.1 mg/dL (0.0-0.5); Bilirubin Total 0.4 mg/dL (0.0-1.0); Blood Urea Nitrogen 17 mg/dL (9-16); Calcium 10.1 mg/dL (8.4-10.2); Carbon Dioxide 27 mmol/L (22-29); Chloride 105 mmol/L (96-108); Creatinine Clr Calc Pharmacy 74.2; Estimated Glomerular Filt Rate > 60; Glucose Random 93 mg/dL (60-115); Lipase 23 U/L (8-78); Sodium 142 mmol/L (135-145); Total Protein 6.7 g/dL (6.5-8.0)
[2024-07-05] MEDS: iohexoL 350 MG/ML 100 ML INFUS..BTL 85 ML IV (23:52)
[2024-07-06 01:08] VITALS: BP 110/59; PULSE 67; RESP 16; TEMP 36.9; O2SAT 94
--- NOTE | 2024-07-06 01:27 | PC.NURSE ---
Pt incontinent of large amount of stool and urine. Incontinent care provided. Pt repositioned, purewick placed.
[2024-07-06 02:03] LABS: Appearance Urine Cloudy; Color Urine Dark Yellow; Glucose Urine UA Negative (Negative); Leukocyte Esterase Urine Moderate (2+) (Negative); Nitrite Urine Positive (Negative); PH 7.5 (5.0-9.0); Specific Gravity - Urine >= 1.030 (1.005-1.025); UMIC TRIGGER UACC YES; Urine Blood Large (3+) (Negative); Urine Ketones Negative (Negative); Urine Protein 100 (2+) mg/dL (Neg-Trace)
[2024-07-06 02:36] LABS: Bacteria Urine 4+ (None Seen); Hyaline Casts Urine 0-2 /LPF (0-2); RBC Urine >20 /HPF (0-2); Squamous Epithelial Cell Urine 0-2 /HPF (0-2); UACC Culture Trigger YES; WBC Urine >50 /HPF (0-5)
[2024-07-06] MEDS: cefTRIAXone sodium 1 GM VIAL IVPUSH (02:36)
[2024-07-06 02:43] VITALS: BP 112/43; PULSE 72; RESP 16; TEMP 36.9; O2SAT 95
[2024-07-06 02:44] VITALS: BP 112/43; PULSE 72; RESP 16; TEMP 36.9; O2SAT 95
--- NOTE | 2024-07-06 03:01 | PC.NURSE ---
Report given to Lucy muro [facility]. Pt [facility] transported [facility]. Pt aware of plan.
== END 2024-07-06 03:33 | disposition home or self-care (01) ==
PROVIDERS: Emergency Provider Emergency Medicine Emergency Medical Services; PCP Family Medicine
DX: K59.00 Constipation, unspecified (principal); N39.0 Urinary tract infection, site not specified; R10.31 Right lower quadrant pain; R11.0 Nausea; Z79.899 Other long term (current) drug therapy
CPT/HCPCS: 36415; 74177; 80048; 80076; 81001; 83690; 85025; 87086; 87088; 87186; 96361; 96374; 96375; 99284; J0696; J2405; Q9967

== ENCOUNTER 2024-07-25 07:19 | Day surgery (SDC) | payer MEDICAID, SELFPAY ==
[2024-07-25] VITALS (11 sets, daily range): BP systolic 116–156; BP diastolic 48–72; PULSE 58–87; RESP 14–22; TEMP 36.3–36.6; O2SAT 94–100; BMI 20.1
[2024-07-25] MEDS: Lactated Ringers 1,000 ML 100 ML IVCONT (08:03)
--- NOTE | 2024-07-25 09:39 | MHC.SHP ---
Pre-Procedural Eval Section A - 24 Hr Update-Section A only Date of Service: 07/25/24 The patient is an INPATIENT: No Changes since office visit: No Cold of Flu in the past 2 weeks, No New Medical Problems, No Changes in Medication and No Patient answered all questions The patient has been examined within 24 hours of the surgical procedure. The History & Physical has been completed within 30 days and I have reviewed it.: Yes Section B - Complete if H&P > 30 days Chief Complaint: Calculus of kidney Details of Present Illness: Cystoscopy, right stent removal, right ureteroscopy with laser lithotripsy, basketing, stent Relevant Social History: None Present Medications: see Short Stay Collaborative assessment Medical History: Significant History History of Previous Operations: Relevant previous surgery/procedure and date(s) Allergies: Allergies Allergy/AdvReac Type Severity Reaction Status Date / Time No Known Allergies Allergy Verified 07/25/24 08:20 Review of Systems Sugical H&P ROS: Negative: Constitution, Cardiovascular, Respiratory, Neurological, Psychiatric, Hem-Onc, Allergic/Immunologic, Gastrointestinal, Genitourinary, Musculoskeletal, Integumentary, Endocrine and Eyes/Ears/Nose/Throat Exam Surgical H&P Exam: Normal: HEENT, Normal: Heart, Normal: Lungs, Normal: Extremities, Normal: Abdomen, Normal: Skin and Normal: Neurological Plan Diagnosis/Plan: Unchanged (Above) I have reviewed the history and physical and performed a pertinent physical examination on my patient. No changes have occurred unless specified. Time Spent With Patient Time: Total time managing care of this patient today ____ minutes.
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
--- NOTE | 2024-07-25 10:59 | W.PM.OPN ---
Operative Note Operative Note Date of Service: 07/25/24 Narrative: PreOperative Diagnosis: Right renal stones Post Operative Diagnosis: Right renal stones Procedure: - cystoscopy, removal right ureteric stent - right dilatation of ureteric orifice under fluoroscopy - right ureteroscopy, laser lithotripsy, stone suction - with steerable vacuum aspiration of kidney ([facility] code C9761 describes cystourethroscopy, with ureteroscopy and/or pyeloscopy, with lithotripsy, and ureteral catheterization for steerable vacuum aspiration of the kidney, collecting system, ureter, bladder, and urethra if applicable (must use a steerable ureteral catheter) Surgeon: Dr Nick Rodney Anesthesia: General Indications for procedure: Initial presentation with urosepsis. Stent placed on right side. On imaging found to have cluster of 1 cm stones within kidney. Procedure: After informed consent was verified patient was brought to the operating placed in supine position. Anesthesia was administered per protocol. Patient was placed in modified dorsal lithotomy position and prepped and draped in a sterile fashion. Safety pause time-out and side of surgery confirmed. Antibiotics confirmed. 22 [place] cystoscope was inserted per urethra. Bladder was normal in its entirety. Both ureteric orifices were in normal position. Stent emerging from right ureteric catheter. Sensor wire placed alongside. A Sensor guidewire was placed up to the level of the renal pelvis under fluoroscopy. The indwelling right ureteric stent and rigid cystoscope was removed. The inner cannula of steerable ureteric access sheath was used under fluoroscopy to dilate the ureteric orifice. The steerable suction ureteric access sheath was placed and the inner cannula with access wire removed. The digital flexible ureteral scope was placed. Stones were encountered in the upper pole, mid pole and lower pole. Using the 360 nm holmium laser fiber the stones were able to be broken into small pieces. In using the steerable vacuum sheath aspiration of the stones was able to be performed. This took place were proximally 45 minutes. A decision was made not to place a stent at the end of the procedure. The bladder was emptied. The patient tolerated the procedure well and was extubated in the operating room, and transferred in stable condition to the recovery area. Pathology: Stones debris Drains:
[2024-07-25] MEDS: fentaNYL citrate/PF 100 MCG/2 ML VIAL 50 MCG IVPUSH ×2 (11:05→11:15)
[2024-07-25] MEDS: LORazepam 2 MG/ML VIAL 1 MG IVPUSH (11:05)
[2024-08-03 19:28] LABS: Stone Source RIGHT RENAL STONE
== END 2024-07-25 13:48 | disposition home or self-care (01) ==
PROVIDERS: PCP Family Medicine Geriatric Medicine; Visit Provider Urology
PROC: (CPT C9761; principal; 2024-07-25 09:30)
DX: N20.0 Calculus of kidney (principal); N13.6 Pyonephrosis; B96.20 Unspecified Escherichia coli [E. coli] as the cause of diseases classified elsewhere; Z46.6 Encounter for fitting and adjustment of urinary device; G82.20 Paraplegia, unspecified; G43.909 Migraine, unspecified, not intractable, without status migrainosus; K59.09 Other constipation; Z66 Do not resuscitate
CPT/HCPCS: C9761; 82365; 88300; C1758; C1769; J0131; J0736; J1100; J2003; J2060; J2405; J2704; J3010; Q9967

== ENCOUNTER → 2024-07-25 07:19 | Outpatient (BNV) | payer MEDICAID, SELFPAY | PROVIDERS: PCP Family Medicine Geriatric Medicine; Visit Provider Urology | DX: N20.0 Calculus of kidney (principal) | CPT/HCPCS: 52353 ==

== ENCOUNTER 2024-08-02 13:44 | Outpatient (AMB) | payer MEDICAID, SELFPAY ==
--- NOTE | 2024-08-02 13:57 | A.OFFVIS_ITS ---
Intake Visit Reasons: Stent removal Intake Note: Patient is present for STENT REMOVAL Urology Medication:PYRIDIUM,BACTRIM Antibiotic Allergy:NONE Blood Thinner:NONE LOT:[id number] exp: 07/04/27 Liaison Inspection Laboratory Assistant Required: No Allergies No Known Allergies Allergy (Verified 08/02/24 14:04) HPI Comments Details: Sandi is a pleasant female. She is a patient of . She is s een for the following urologic conditions - pyelonephritis with right renal stone Has had significant improvement Remains in rehab Nephrolithiasis Initially seen in hospital with distal right ureteric stone and significant pyelonephritis Was in urosepsis - Positive E coli pansensitive Currently in rehab Imaging - Mild to moderate right hydroureteronephrosis is present to at least the level of the distal ureter. 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 Depression Hx of compression fracture of spine Chronic constipation Paraplegia following spinal cord injury Migraines Surgical History Hx of cystoscopy History of back surgery Social History Household Members: None Housing: Jail Are you a primary technical healthcare consultant to a significant other at home: No Do you presently have visiting nurse or other home services: No Comment: tolerable Patient Tobacco Use Status: Former Tobacco user Advance Directives Date on File: 06/09/24 service: No Review of Systems Const Denies chills and Denies fever(s) Card Reports no additional complaints and Denies syncope Resp Denies cough GI Denies abdominal pain and Denies heartburn Reports as per HPI and Denies change in libido Neuro Denies syncope Psych Denies change in libido Endo Denies change in libido Physical Exam Const General: cooperative, healthy appearing, comfortable and no acute distress Orientation/consciousness: patient oriented x3 HEENT Face and sinus: Yes normal facial exam Mouth: moist mucous membranes Neck Neck: Yes normal visual inspection, Yes full ROM and Yes trachea midline Chest Chest palpation & inspection: normal inspection of the chest Resp Effort & Inspection: normal respiratory effort, able to speak in complete sentences and no respiratory distress GI Inspection: Yes normal to inspection Back/Spine/Pelvis Cervical Spine: normal cervical lordosis Thoracic/Lumbar Spine: thoracic and lumbar spine normal to inspection Skin General skin exam: no rashes or lesions noted Neuro General: patient oriented x3, gait normal, tone normal and moves all extremities Extrem General: Yes normal to inspection and Yes capillary refill normal Assessment & Plan Assessment & Plan (1) Nephrolithiasis: Code(s): N20.0 - Calculus of kidney Category: Medical Plan Three-month follow-up ultrasound tele Orders: Orders AMB Urinalysis Automated Today Z13.9 - Encounter for screening, unspecified Medications: New sulfamethoxazole-trimethoprim 400-80 mg (Bactrim) 1 tab PO BEDTIME 90 days 90 tabs 0RF N20.0 - Calculus of kidney, N39.0 - Urinary tract infection, site not specified Discontinued sulfamethoxazole-trimethoprim 800-160 mg (Bactrim DS) Discontinued Reason: Patient Completed Course 1 tab PO BID 14 days 28 tabs 0RF Patient Instructions: Imaging studies, laboratory and physical exam results were discussed and reviewed in detail. No major barriers to patient understanding were identified. An opportunity to ask questions regarding the treatment plan was provided. All questions were answered. The patient expressed understanding and agreement with the above treatment plan. The patient is aware they should contact our office by phone for worsening of their current condition or the appearance of new urologic symptoms. Compliance is encouraged with any medications and followup testing that is ordered. It is a privilege to participate in the urologic care of your patient. If you have any questions or concerns regarding treatment for the above conditions, or other urologic issues, please do not hesitate to contact me. The office telephone contact is [phone]. This note is constructed using voice recognition software. While every effort has been made to ensure accuracy technical education teacher errors may have been included. Yours sincerely, Dr Nick Rodney MD, [facility] - Urology Providers of Expert, Compassionate Care for the Genitourinary System Coding Level of Care Code Est Pt Level 3 (12107) Diagnoses Nephrolithiasis N20.0
== END 2024-08-02 14:58 | disposition home or self-care (01) ==
PROVIDERS: PCP Family Medicine Geriatric Medicine; Visit Provider Urology
DX: N20.0 Calculus of kidney (principal)
CPT/HCPCS: 99213

== ENCOUNTER → 2024-08-02 13:44 | Outpatient (BNVA) | payer MEDICAID, SELFPAY | PROVIDERS: PCP Family Medicine Geriatric Medicine; Visit Provider Urology | DX: N20.0 Calculus of kidney (principal); N39.0 Urinary tract infection, site not specified | CPT/HCPCS: 99212 ==

== ENCOUNTER → 2024-09-05 16:05 | Outpatient (BNV) | payer MEDICAID, SELFPAY | PROVIDERS: Emergency Provider Emergency Medicine; Visit Provider Radiology Diagnostic Radiology | DX: N20.0 Calculus of kidney (principal) | CPT/HCPCS: 74176 ==

== ENCOUNTER 2024-10-18 13:03 | Outpatient (REF) | payer MEDICAID, SELFPAY ==
--- NOTE | ~2024-10-18 | US_ITS ---
CLINICAL HISTORY: N20.0 - Calculus of kidney US Renal Comparison: CT/SR - CT ABDOMEN PELVIS WO IV CON - 09/05/24 16:[address]/ND/SR - CT ABDOMEN PELVIS W IV CON - 07/05/24 23:47 EST Findings: Right kidney normal size and echotexture, 9.7 cm length. Interpolar echogenic focus. Left kidney normal size and echotexture, 6.8 cm length. Left kidney is not well seen. No collecting system dilatation of either kidney. Normal color Doppler. IMPRESSION: 1. Nonobstructing right nephrolithiasis. This document has been electronically signed by: Abiel Hyde MD on 10/19/2024 15:24:23
== END 2024-10-18 13:04 | disposition home or self-care (01) ==
LOC: HO.US 13:03
PROVIDERS: Visit Provider Urology
DX: N20.0 Calculus of kidney (principal); N39.0 Urinary tract infection, site not specified; N12 Tubulo-interstitial nephritis, not specified as acute or chronic
CPT/HCPCS: 76775

== ENCOUNTER → 2024-10-18 13:05 | Outpatient (BNV) | payer MEDICAID, SELFPAY | PROVIDERS: Visit Provider Radiology Diagnostic Radiology | DX: N20.0 Calculus of kidney (principal) | CPT/HCPCS: 76775 ==

== ENCOUNTER 2024-11-01 09:36 | Outpatient (AMB) | payer MEDICAID, SELFPAY ==
--- NOTE | 2024-11-01 09:39 | A.OFFVIS_ITS ---
Intake Visit Reasons: 3m/US(SET) Intake Note: Patient is present for 3M/US Urology Medication:VITAMIN B1 Antibiotic Allergy:NONE Blood Thinner:NONE Psychiatric Clinical Nurse Specialist Required: No Allergies No Known Allergies Allergy (Verified 11/01/24 09:39) HPI Comments Details: Sandi is a pleasant female. She is a patient of . She is seen for the following urologic conditions - pyelonephritis with right renal stone Telemedicine Evaluation 15 min Consultation [facility] Andrew Video Three-month follow-up imaging Significant improvement in well being following urosepsis Minimal stone burden left on follow-up imaging Extent daily low-dose Bactrim for six-month Follow-up six-month ultrasound Nephrolithiasis Initially seen in hospital with distal right ureteric stone and significant pyelonephritis Was in urosepsis - Positive E coli pansensitive Currently in rehab Imaging - Mild to moderate right hydroureteronephrosis is present to at least the level of the distal ureter. There are multiple additional intrarenal calculi in the right kidney, the largest in the midpole measuring 10 x 9 mm and measuring 400 Hounsfield units - 10/25 renal ultrasound Intervention - 07/24 ureteroscopy with laser lithotripsy Stone composition - 07/24 100% calcium Apatite PFSH Medical History Anemia Renal mass History of ITP Spinal cord injury Sequelae of Guillain-Gloucester syndrome Depression Hx of compression fracture of spine Chronic constipation Paraplegia following spinal cord injury Migraines Surgical History Hx of cystoscopy History of back surgery Social History Household Members: None Housing: Jail Are you a primary progressive care nurse to a significant other at home: No Do you presently have visiting nurse or other home services: No Comment: tolerable Patient Tobacco Use Status: Former Tobacco user Advance Directives Date on File: 06/09/24 service: No Review of Systems Const All systems reviewed & are unremarkable except as noted in HPI and below Reports no additional complaints Resp Reports no additional complaints GI Reports no additional complaints Reports as per HPI Musc Reports no additional complaints Physical Exam Telemedicine evaluation Appropriate responses Regular breathing rate and rhythm HEENT Head: Yes normal to inspection Ears: hearing grossly normal bilaterally Eyes General: appearance normal, both eyes and all related structures Neck Neck: Yes normal visual inspection Chest Chest palpation & inspection: normal inspection of the chest Resp Effort & Inspection: normal respiratory effort and able to speak in complete sentences Telehealth Telehealth Location of provider rendering services: practice address Location of patient: address on file Patient Identification confirmed using: Name, : Yes Telehealth method: voice only Patient verbally consented to treatment: Yes Patient verbally consented to billing insurance company: Yes Patient informed of any privacy concerns related to visit: Yes Assessment & Plan Assessment & Plan (1) Nephrolithiasis: Code(s): N20.0 - Calculus of kidney Category: Medical (2) Acute UTI: Code(s): N39.0 - Urinary tract infection, site not specified Category: Medical Plan Six-month follow-up renal ultrasound office Orders: Orders US renal BI 6 Months N20.0 - Calculus of kidney Patient Instructions: This note is constructed using voice recognition software. While every effort has been made to ensure accuracy real estate developer errors may have been included. Imaging studies, laboratory and physical exam results were discussed and reviewed in detail. No major barriers to patient understanding were identified. An opportunity to ask questions regarding the treatment plan was provided. All questions were answered. The patient expressed understanding and agreement with the above treatment plan. The patient is aware they should contact our office by phone for worsening of their current condition or the appearance of new urologic symptoms. Compliance is encouraged with any medications and followup testing that is ordered. It is a privilege to participate in the urologic care of your patient. If you have any questions or concerns regarding treatment for the above conditions, or other urologic issues, please do not hesitate to contact me. The office te hong contact is [phone]. Sincerely, Dr Nick Rodney MD, [facility] - Urology Compassionate Specialist Care for the Genitourinary System Coding Level of Care Code Tele Est Pt Level 3 (29490) Complex EM visit Add On G2211 Diagnoses Nephrolithiasis N20.0 Acute UTI N39.0
--- OUTSIDE RECORDS SUMMARY | 2024-11-01 10:49 | XMS_ITS | Clinical Summary ---
Author Organization [facility] it Address [address] [place] [address] Care Team Providers Care Human Resource Internship Name Role Phone Diana La MD Primary Care Provider [phone] Medications thiamine 100 mg tablet Take 1 tablet (100 mg total) by mouth daily. Active senna (SENOKOT) 8.6 mg tablet Take 2 tablets (17.2 mg total) by mouth daily. Active polyethylene glycol (MIRALAX) 17 gram packet Take 17 g by mouth daily. Active phenazopyridine (PYRIDIUM) 200 mg tablet Take 1 tablet (200 mg total) by mouth 3 times daily. 06/24/20 24 Active omeprazole (PriLOSEC) [address] capsule Take 1 capsule (20 mg total) by mouth daily. Active nystatin (MYCOSTATIN) 100,000 unit/gram powder Apply 1 Application topically daily. Active methylPREDNISol one (MEDROL) 4 mg tablet See administration instructions. 12/15/19 24 Active magnesium hydroxide (MILK OF MAGNESIA) 400 mg/5 mL suspension Take 30 mL by mouth once daily as needed. Active lidocaine 4 % patch Place 1 patch on the skin 1 (one) time each day at the same time. Active HYDROcodone-anu taminophen (NORCO) 5-325 mg per tablet Take 1 tablet by mouth every 6 hours as needed. Max Daily Amount: 4 tablets 12/15/19 24 Active gabapentin (NEURONTIN) 300 mg capsule Take 1 capsule (300 mg total) by mouth 3 times daily. Active folic acid (FOLVITE) 400 mcg tablet Take 1 tablet (0.4 mg total) by mouth 1 (one) time each day. 12/02/19 Active docusate sodium (COLACE) 50 mg capsule Take 2 capsules (100 mg total) by mouth 2 times daily. Active diclofenac (VOLTAREN) 1 % topical gel Apply 1 g topically 2 times daily. Active bisacodyL (DULCOLAX) 10 mg suppository Insert 1 suppository (10 mg total) into the rectum. Active cholecalciferol (VITAMIN D-3) 25 mcg (1,000 unit) tablet Take 1 tablet (1,000 Units total) by mouth daily. Active acetaminophen (TYLENOL) 325 mg tablet Take 2 tablets (650 mg total) by mouth every 6 hours as needed. Active cyanocobalamin (VITAMIN B-12) 2,500 mcg tablet Take 1 tablet (2,500 mcg total) by mouth 1 (one) time each day. 12/02/19 Active Active Problems Problem Noted Date Diagnosed Date Lower abdominal pain 06/23/2024 Urinary tract infection 06/23/2024 Vitamin B 12 deficiency 12/07/2023 Venous insufficiency of both lower extremities 0 03/31/2019 Major depression 09/07/2014 Benign neoplasm of colon 11/06/2008 Overview (07/07/2024): 7 mm sigmoid colon polyp 11/06/2008:Tubular adenoma. Lumbago 10/12/2007 Overview (07/07/2024): Had back surgery Immunizations Name Administration Dates Next Due Hep B, Unspecified 06/25/2016 Influenza trivalent, 0.5mL, preservative free (Fluarix; FluLaval; Fluzone) ages 6mo and older (Afluria) 3 years and older 07/15/2018,06/04/2015,07/04/2014,2008,05/23/2008 PPD Test 06/26/2016 Tdap Tetanus diptheria acell ular pertussis (Boostrix; Adacel) 7yo and older 04/19/2012 Surgical History Surgery Date Site/Laterality Comments COLONOSCOPY 11/06/2008 PROCEDURE: HISTORICAL COLONOSCOPY; COMMENT: 7mm sigmoid polyp:Tubular adenoma OTHER SURGICAL HISTORY 08/31/2013 PROCEDURE: ---- OTHER ----; COMMENT: C5-[address] Call COLONOSCOPY 08/15/2015 PROCEDURE: HISTORICAL COLONOSCOPY; COMMENT: No polyps BACK SURGERY PROCEDURE: HISTORICAL BACK SURGERY; COMMENT: lumbar fusion Medical History Medical History Date Comments Lumbago 10/12/2007 DX:Lumbago; COMM ENT: Had back surgery Tobacco abuse 12/03/2007 DX:Tobacco abuse Benign neoplasm of colon 11/06/2008 DX:Sheldon gn neoplasm of colon; COMMENT: 7 mm sigmoid colon polyp 11/06/2008: Major depression 09/07/2014 DX:Major depres ric Family History Medical History Relation Name Comments No Known Problems Brother 1 No Known Problems Brother 2 No Known Problems Daughter Arthritis Father Stomach cancer Father in h is 60's No Known Problems Maternal Grandfather No Known Problems Maternal Grandmother Arthritis Mother dementia Hypertension Mother Other: aoric valve reoplaced Mother No Known Problems Other No Known Problems Paternal Grandfather No Known Problems Paternal Grandmother No Known Problems Sister 1 No Known Problems Sister 2 Breast cancer Neg Hx Colon cancer Neg Hx Ovarian cancer Neg Hx Relation Name Status Comments Brother 1 Alive Brother 2 Alive Daughter Father (Age 67) cancer sto mach Maternal Grandfather Maternal Grandmother Mother Other Paternal Grandfather Paternal Grandmother Sister 1 Alive Sister 2 Alive Social History Tobacco Use Types Packs/Day Years Used Date Smoking Tobacco: Never Assessed Cigarettes 0.8 43 Started: 1981 Alcohol Use Standard Drinks/Week Comments No 0 (1 standard drink = 0.6 oz pur e alcohol) Housing Instability Answer Date Recorde d Are you worried that in the next 2 months you may not have stable housing? No 09/19/2024 Food Access & Nutrition Answer Date Rec orded Do you have access to a vari ety of food including fruits and vegetables? Yes 09/19/2024 Access to Healthcare Answer Date Record ed Within the last 3 months, ho w many times did you visit the emergency department for your medical care? 2 09/19/2024 Health Literacy Answer Date Recorded How often do you need to hav e someone help you when you read instructions, pamphlets, or other written material from your doctor or pharmacy? Never 09/19/2024 Caregiver: How often do you need to have someone help you when you read instructions, pamphlets, or other written material from your doctor or pharmacy? Not on file 09/19/2024 Financial Risk Answer Date Recorded How hard is it for you to pa y for the very basics like food, housing, medical care, and air conditioning / heating? Not very hard 09/19/2024 Transportation Answer Date Recorded Has the lack of transportati on kept you from meetings, work, or from getting things needed for daily living? No Has the lack of transportati on kept you from medical appointments or from getting medications? No 09/19/2024 Social Isolation Answer Date Recorded How often do you feel lonely or isolated from those around you? Sometimes 09/19/2024 Food Risk Answer Date Recorded Within the past 12 months we worried whether our food would run out before we got money to buy more. Never true 09/19/2024 Within the past 12 months th e food we bought just didn't last and we didn't have money to get more. Never true 09/19/2024 Dependent Care Answer Date Recorded Do you need help finding or paying for care for your loved ones. For example, child care associate or elderly care for an older adult? No 09/19/2024 Education Answer Date Recorded Do you think completing more education or training, like finishing a GED, going to college, or learning a trade, would be helpful for you? No 09/19/2024 Employment and Income Answer Date Recor ded During the last four weeks, have you been actively looking for work? No 09/19/2024 Living Situation Answer Date Recorded What is your living situation? 0 09/19/2024 Comments Unknown Sex and Gender Information Value Date Recorded Sex Assigned at Not on file Legal Sex Female 12:41 AM EST Gender Identity Not on file Sexual Orientation Not on file Obstetrics History Last Filed Vital Signs Vital Sign Reading Time Taken Comments Blood Pressure 108/72 12/07/2023 11:33 AM EDT Pulse 100 12/07/2023 11:33 AM EDT Temperature - - Respiratory Rate - - Oxygen Saturation - - Inhaled Oxygen Concentration - - Weight - - Height 175.3 cm (5' 9 ) 12/07/2023 11:33 AM EDT Body Mass Index - - Plan of Treatment Health Maintenance Due Date Last Done Comments Pneumococcal Vaccine: 50+ Years (1 of 1 - PCV) 2008 Zoster Vaccines (1 of 2) 2008 Hepatitis B Vaccines (2 of 3 - 19+ 3-dose series) 07/23/2016 06/25/2016 DTaP,Tdap,and Td Vaccines (2 - Td or Tdap) 04/19/2022 04/19/2012 Breast Cancer Screening 05/22/2022 05/22/20, 05/17/2019, 05/12/2018, Additional history exists Colorectal Cancer Screening: Colonoscopy 08/03/2022 08/15/2015 Hepatitis C Screening 08/03/2022 Lung Cancer Screening (Low Dose CT) 08/03/2022 Osteoporosis Screening (Bone Density Screening) 08/03/2022 Cholesterol Screening (Lipid Panel) 03/09/2023 03/09/2018 Falls Risk Assessment 2023 COVID-19 Vaccine ( season) 2024 Influenza Vaccine (#1) 2024 8, 06/04/2015, 07/04/2014, Additional history exists Depression Screening 09/19/2025 09/19/2024 Social Influencers of Health Screening 09/19/2025 09/19/2024 RSV Immunization Patients 60+ Years Old (1 - 1-dose 75+ series) 2033 HIB Vaccines Aged Out No longer eligi ble based on patient's age to complete this topic HPV Vaccines Aged Out No longer eligi ble based on patient's age to complete this topic Hepatitis A Vaccines Aged Out No long er eligible based on patient's age to complete this topic IPV Vaccines Aged Out No longer eligi ble based on patient's age to complete this topic MMR Vaccines Aged Out No longer eligi ble based on patient's age to complete this topic Meningococcal ACWY Vaccine Aged Out N o longer eligible based on patient's age to complete this topic Meningococcal B Vacine Aged Out No lo nger eligible based on patient's age to complete this topic RSV Immunization Patients Under 20 months Aged Out No longer eligible based on patient's age to complete this topic Varicella Vaccines Aged Out No longer eligible based on patient's age to complete this topic Procedures Procedure Name Priority Date/Time Associated Diagnosis Comments SCR MAMMO BI INCL CAD Routine 05/22/2020 7:48 AM EDT Encounter for screening mammogram for malignant neoplasm of breast from Last 3 Months or Most Recently Relevant to Health Maintenance Results * SCR MAMMO BI INCL CAD (05/22/2020 7:48 AM EDT) Anatomical Region Laterality Modality Radiographic Maisha ging 05/17/2019 7:52 AM EDT Narrative 05/24/2020 9:39 AM EDT This is a summary report. The complete report is available in the patient's medical record. If you cannot access the medical record, please contact the sending organization for a detailed fax or copy. Full field digital screening mammography, reviewed with CAD and compared to previous mammograms dating back to 11/15/2007 with most recent of 05/17/2019. ??The breast tissue is dense, limiting sensitivity. ??No suspicious mass, architectural distortion or suspicious calcifications are identified. IMPRESSION: : Dense breast tissue, limiting the sensitivity of mammography. ??No mammographic evidence of malignancy. BIRADS 1-Negative; N. 5 year breast cancer risk assessment 1.2 % Lifetime breast cancer risk assessment 5.8 % Breast cancer risk category Low (<15%) Procedure Note Barbara Guerrero MD - 08/19/2022 This is a summary report. The complete report is available in thepatient's medical record. If you cannot access the medical record, pleasecontact the sending organization for a detailed fax or copy. Full field digital screening mammography, reviewed with CAD and comparedto previous mammograms dating back to 11/15/2007 with most recent of05/17/2019. The breast tissue is dense, limiting sensitivity. Nosuspicious mass, architectural distortion or suspicious calcifications areidentified. IMPRESSION: : Dense breast tissue, limiting the sensitivity of mammography. Nomammographic evidence of malignancy. BIRADS 1-Negative; N. 5 year breast cancer risk assessment 1.2 % Lifetime breast cancer risk assessment 5.8 % Breast cancer risk category Low (<15%) us Ashley Duggan MD IMG XR PROCEDURES Fi nal Result from Last 3 Months or Most Recently Relevant to Health Maintenance Care Teams Human Resource Internship Relationship Specialty Start Date End Date Diana La MD PCP - General 12/04/23
--- OUTSIDE RECORDS SUMMARY | 2024-11-01 10:49 | XMS_ITS | Clinical Summary ---
Author Organization [facility] Address [address] [place] [address] Care Team Providers Care Housekeeper Manager Name Role Phone Unavailable Primary Care Provider Unavailabl e Medications Medication Sig Dispensed Refills Start Date End Date Status HYDROcodone-acetami nophen (NORCO) 5-325 MG per tablet Take 1 tablet by mouth every 6 (six) hours as needed for pain. 12 tablet 0 12/15/2023 Active methylPREDNISolone (MEDROL DOSEPACK) 4 MG tablet follow package directions 21 tablet 0 12/15/2023 Active Active Problems No known active problems Social History Tobacco Use Types Packs/Day Years Used Date Smoking Tobacco: Never Assessed Sex and Gender Information Value Date Recorded Sex Assigned at Female 12/08/2023 3:50 AM EDT Gender Identity Not on file Sexual Orientation Not on file Job Start Date Occupation Industry Not on file Not on file Not on file Last Filed Vital Signs Vital Sign Reading Time Taken Comments Blood Pressure 115/70 12/15/2023 5:30 AM EDT Pulse 85 12/15/2023 5:30 AM EDT Temperature 36.8 ??C (98.2 ??F) 12/15/2023 5:30 AM ED T Respiratory Rate 20 12/15/2023 5:30 AM EDT Oxygen Saturation 98% 12/14/2023 12:00 PM EDT Inhaled Oxygen Concentration - - Weight 59 kg (130 lb) 12/08/2023 8:34 PM EDT Height 175.3 cm (5' 9 ) 12/08/2023 8:34 PM EDT Body Mass Index 19.2 12/08/2023 8:34 PM EDT Plan of Treatment Health Maintenance Due Date Last Done Comments Hepatitis C Screening 1958 COVID-19 Vaccine (#1) 04/20/1959 Depression Screening 1970 Preventative Health Evaluation 1976 Colon Cancer Screening (Colonoscopy) 2003 Breast Cancer Screening (Mammogram) 2008 Shingrix-Zoster Vaccine (1 of 2) 2008 DTap / Tdap / Td (2 - Td or Tdap) 04/19/2022 04/19/2012 Fall Risk Assessment 2023 Osteoporosis Screening (DEXA Scan) 2023 Pneumococcal Vaccine (1 of 1 - PCV) 2023 Influenza Vaccine (#1) 2024 8, 07/04/2014, 05/28/2009, Additional history exists RSV Adult > 60+ Yrs or (1 - 1-dose 75+ series) 2033 Hepatitis B Vaccines Aged Out No long er eligible based on patient's age to complete this topic RSV Ped < 20 months Aged Out No longe r eligible based on patient's age to complete this topic
== END 2024-11-01 10:10 | disposition home or self-care (01) ==
LOC: HO.HUSH 09:36
PROVIDERS: Visit Provider Urology
DX: N20.0 Calculus of kidney (principal); N39.0 Urinary tract infection, site not specified
CPT/HCPCS: 99213

== ENCOUNTER 2024-12-12 20:19 | Emergency (ER) | payer SELFPAY ==
[2024-12-12 20:39] VITALS: BP 111/61; PULSE 73; O2SAT 96
[2024-12-12 20:52] VITALS: BP 117/43; PULSE 73; RESP 18; TEMP 37; O2SAT 100; BMI 22.1
[2024-12-12 21:00] VITALS: BP 101/64; PULSE 69; RESP 16; TEMP 36.8; O2SAT 95
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
[2024-12-12 21:17] LABS: MANUAL DIFF FLAG NO
[2024-12-12 21:21] LABS: Basophils Percent Auto 0.3 % (0-2); Eosinophils Absolute Auto 0.1 X10*3/uL (0.0-0.4); Eosinophils Percent Auto 1.5 % (0-4); Hematocrit 35.2 % (37.0-47.0); Hemoglobin 12.2 g/dl (12.0-16.0); Imm Gran Abs Auto 0.01 X10*3/uL (0.00-0.03); Imm Gran Pct Auto 0.2 % (0.0-0.4); Lymphocytes Absolute Auto 1.3 X10*3/uL (1.2-4.9); Lymphocytes Percent Auto 22.8 % (20-40); Mean Corpuscular HGB Conc 34.7 g/dl (31.0-35.0); Mean Corpuscular Hemoglobin 33.1 pg (27.0-33.0); Mean Corpuscular Volume 95.4 fL (80.0-98.0); Mean Platelet Volume 9.7 fL (9.4-12.3); Monocytes Absolute Auto 0.8 X10*3/uL (0.1-1.2); Monocytes Percent Auto 13.2 % (2-11); Neutrophils Absolute Auto 3.7 x10*3/uL (2.0-8.3); Platelet Count 141 X10*3/uL (160-400); Red Blood Count 3.69 X10*6/uL (4.20-5.50); Red Cell Distribution Width 12.6 % (11.0-16.0); White Blood Count 5.9 X10*3/uL (4.8-10.8)
[2024-12-12 21:32] LABS: Alanine Aminotransferase 30 U/L (0-31); Albumin Level 4.1 g/dL (3.5-5.0); Alkaline Phosphatase 69 U/L (39-117); Anion Gap 13 (12-20); Aspartate Amino Transferase 28 U/L (5-31); Bilirubin Direct 0.1 mg/dL (0.0-0.5); Bilirubin Total 0.3 mg/dL (0.0-1.0); Blood Urea Nitrogen 24 mg/dL (9-16); Calcium 9.9 mg/dL (8.4-10.2); Carbon Dioxide 26 mmol/L (22-29); Chloride 105 mmol/L (96-108); Creatinine Clr Calc Pharmacy 55.6; Estimated Glomerular Filt Rate 53; Glucose Random 89 mg/dL (60-115); Potassium 3.9 mmol/L (3.3-5.1); Sodium 140 mmol/L (135-145); Total Protein 6.9 g/dL (6.5-8.0)
--- OUTSIDE RECORDS SUMMARY | 2024-12-12 21:35 | XMS_ITS | Clinical Summary ---
Author Organization [facility] Address [address] [place] [address] Care Team Providers Care Project Drilling Engineer Name Role Phone Unavailable Primary Care Provider [...]
--- OUTSIDE RECORDS SUMMARY | 2024-12-12 21:35 | XMS_ITS | Clinical Summary ---
Author Organization [facility] it Address [address] [place] [address] Care Team Providers Care Janitor Name Role Phone Diana La MD Primary Care Provider [phone] Medications thiamine 100 mg tablet Take 1 [...] Date Smoking Tobacco: Never Assessed Cigarettes 0.8 43.1 Started: 1983 Alcohol Use Standard Drinks/Week Comments [...] for your loved ones. For example, child life assistant or elderly care for an older adult? [...] COVID-19 Vaccine ( season) 2024 Influenza Vaccine (Season Ended) 2025 07/15/2018, 06/04/2015, 07/04/2014, Additional history exists Depression Screening 09/19/2025 09/19/2024 Social Influencers of Health Screening 09/19/2025 09/19/2024 RSV Immunization Adult Patients (1 - 1-dose 75+ series) 2033 HIB [...] age to complete this topic Meningococcal B Vaccine Aged Out No l onger eligible based on patient's age to complete [...] Recently Relevant to Health Maintenance Care Teams Janitor Relationship Specialty Start Date End Date Diana La MD PCP - General 12/04/23
[2024-12-12 22:15] LABS: Appearance Urine Cloudy; Color Urine Yellow; Glucose Urine UA Negative (Negative); Leukocyte Esterase Urine Large (3+) (Negative); Nitrite Urine Positive (Negative); PH 7.5 (5.0-9.0); Specific Gravity - Urine 1.015 (1.005-1.025); UMIC TRIGGER UACC YES; Urine Blood Negative (Negative); Urine Ketones Negative (Negative); Urine Protein Negative (Neg-Trace)
[2024-12-12 22:20] LABS: Bacteria Urine 4+ (None Seen); Hyaline Casts Urine 0-2 /LPF (0-2); RBC Urine 0-2 /HPF (0-2); Squamous Epithelial Cell Urine 0-2 /HPF (0-2); UACC Culture Trigger YES
[2024-12-12] MEDS: Nitrofurantoin Monohyd/M-Cryst 100 MG CAPSULE PO (23:51)
[2024-12-12 23:53] VITALS: BP 108/55; PULSE 72; RESP 16; TEMP 36.6; O2SAT 95
[2024-12-13 00:33] VITALS: BP 108/55; PULSE 72; RESP 16; TEMP 36.6; O2SAT 95
== END 2024-12-13 02:35 | disposition home or self-care (01) ==
PROVIDERS: Emergency Provider Internal Medicine
DX: N39.0 Urinary tract infection, site not specified (principal); R10.31 Right lower quadrant pain; Z79.899 Other long term (current) drug therapy; Z87.891 Personal history of nicotine dependence
CPT/HCPCS: 36415; 80048; 80076; 81001; 85025; 87086; 87088; 87186; 99283; 99284

== ENCOUNTER 2025-06-22 11:32 | Outpatient (AMB) | payer MEDICARE, MEDICAID, SELFPAY ==
--- NOTE | 2025-06-22 11:32 | A.OFFVIS_ITS ---
Intake Visit Reasons: US follow up Intake Note: Patient is present for 6M/US Urology medications: none Blood Thinner:NONE US done: 05/05/25 Hold Worker Required: No Accompanied by: DESKTOP PUBLISHER Allergies No Known Allergies Allergy (Verified 06/22/25 11:36) HPI Comments Details: Sandi is a pleasant female. She is a patient of . She is seen for the following urologic conditions - pyelonephritis with right renal stone Six-month follow-up Has been on low-dose Bactrim for six-month secondary to infected kidney stone Ultrasound no stone seen Move to yearly surveillance Nephrolithiasis -chronic infectious stone Initially seen in hospital with distal right ureteric stone and significant pyelonephritis Was in urosepsis - Positive E coli pansensitive Currently in rehab Imaging - Mild to moderate right hydroureteronephrosis is present to at least the level of the distal ureter. 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 Depression Hx of compression fracture of spine Chronic constipation Paraplegia following spinal cord injury Migraines Surgical History Hx of cystoscopy History of back surgery Social History Household Members: None Housing: Longterm Are you a primary residential care officer to a significant other at home: No Do you presently have visiting nurse or other home services: No Comment: tolerable Patient Tobacco Use Status: Former Tobacco user Advance Directives Date on File: 06/09/24 service: No Review of Systems Const Denies chills and Denies fever(s) Card Reports no additional complaints and Denies syncope Resp Denies cough GI Denies abdominal pain and Denies heartburn Reports as per HPI and Denies change in libido Neuro Denies syncope Psych Denies change in libido Endo Denies change in libido Physical Exam Const General: cooperative, healthy appearing, comfortable and no acute distress Orientation/consciousness: patient oriented x3 HEENT Face and sinus: Yes normal facial exam Mouth: moist mucous membranes Neck Neck: Yes normal visual inspection, Yes full ROM and Yes trachea midline Chest Chest palpation & inspection: normal inspection of the chest Resp Effort & Inspection: normal respiratory effort, able to speak in complete sentences and no respiratory distress GI Inspection: Yes normal to inspection Back/Spine/Pelvis Cervical Spine: normal cervical lordosis Thoracic/Lumbar Spine: thoracic and lumbar spine normal to inspection Skin General skin exam: no rashes or lesions noted Neuro General: patient oriented x3, gait normal, tone normal and moves all extremities Extrem General: Yes normal to inspection and Yes capillary refill normal Assessment & Plan Assessment & Plan (1) Nephrolithiasis: Code(s): N20.0 - Calculus of kidney Category: Medical Plan Twelve month follow-up renal ultrasound Orders: Orders US renal BI 12 Months N20.0 - Calculus of kidney Patient Instructions: This note is constructed using voice recognition software. While every effort has been made to ensure accuracy thickener operator errors may have been included. Imaging studies, laboratory and physical exam results were discussed and reviewed in detail. No major barriers to patient understanding were identified. An opportunity to ask questions regarding the treatment plan was provided. All questions were answered. The patient expressed understanding and agreement with the above treatment plan. The patient is aware they should contact our office by phone for worsening of their current condition or the appearance of new urologic symptoms. Compliance is encouraged with any medications and followup testing that is ordered. It is a privilege to participate in the urologic care of your patient. If you have any questions or concerns regarding treatment for the above conditions, or other urologic issues, please do not hesitate to contact me. The office telephone contact is [phone]. Sincerely, Dr Nick Rodney MD, [facility] - Urology Compassionate Specialist Care for the Genitourinary System Coding Level of Care Code Est Pt Level 3 (73927) Complex visit Add On G2211 Diagnoses Nephrolithiasis N20.0
--- OUTSIDE RECORDS SUMMARY | 2025-06-22 14:43 | XMS_ITS | Clinical Summary ---
Author Organization [facility] Address [address] [facility] [address] [place] [phone] Phone Care Team Providers Care Solder Sprayer Name Role Phone George Alvarez MD Primary Care Provider Allergies No known active allergies Medications diclofenac sodium (VOLTAREN) 1 % Gel Apply 1 g topically 2 (two) times a day. Apply to both knees topically two times daily Active bisacodyl (DULCOLAX) [address] 10 mg rectally daily as needed (prn constipation). Active folic acid (FOLVITE) 1 MG tablet Take 1 mg by mouth daily. Active gabapentin (NEURONTIN) 300 MG capsule Take 300 mg by mouth 3 (three) times a day. Active magnesium hydroxide (MOM) 400 mg/5 mL Susp Take 2,400 mg by mouth nightly at bedtime as needed (Give 30ml by mouth as needed for constipation give at bedtime if no BM in 3 days). Active polyethylene glycol (MIRALAX) 17 gram packet Take 17 g by mouth daily. Once daily for constipation Active omeprazole (PRILOSEC) 20 MG capsule Take 20 mg by mouth daily. Active senna (SENOKOT) 8.6 mg tablet Take 2 tablets by mouth nightly at bedtime. Active thiamine (VITAMIN B-1) 100 MG tablet Take 100 mg by mouth daily. Active acetaminophen (TYLENOL) 325 mg tablet Take 650 mg by mouth every 6 (six) hours as needed for pain (specific location in comments). Active lidocaine 4 % Place 1 patch onto the skin daily. Remove & Discard patch within 12 hours or as directed by Active cholecalciferol (VITAMIN D3) 25 MCG (1,000 unit) tablet Take 1,000 Units by mouth daily. Active docusate sodium (COLACE) 50 MG capsule Take 100 mg by mouth 2 (two) times a day. Active nystatin (NYSTOP) powder Apply 1 Application topically daily. Apply to under bilat breasts topically daily until 06/30/24 Active phenazopyridine (PYRIDIUM) 200 MG tablet Take 1 tablet (200 mg total) by mouth 3 (three) times a day with meals. Active Active Problems Problem Noted Date Diagnosed Date Urinary tract infection 06/23/2024 Assessment & Plan (06/23/2024 3:37 PM EDT): For now we will continue ceftriaxone, will do a slightly longer course given the recent instrumentation and ongoing stent in situ. Will follow urine cultures. Lower abdominal pain 06/23/2024 Assessment & Plan (06/24/2024 1:30 PM EDT): It is possible that she is simply very symptomatic with feeling the end of the stent. The CT is reassuring in terms of any serious complications. Urinalysis also consistent with an infection which could be causing pain, as could the remaining stones in her kidney though pain is usually worse when they are in the ureter. Continue ceftriaxone Follow cultures continue Pyridium Recommendations from Dr. Marie's office include abx, pyridium, nsaids, tylenol Encounters Date Type Department Care Team Description 05/26/2025 7:17 AM EDT - 05/26/2025 11:59 PM EDT Hospital Encounter [facility] Laboratory [address] [place] [address] George Alvarez MD Discharge Disposition: Home or Self Care 04/20/2025 Transcribe Orders [facility] Infectious Diseases [address] [place] [address] Talia Kirk MA Paraplegia (Primary Dx) 04/18/2025 7:36 AM EDT - 04/18/2025 11:59 PM EDT Hospital Encounter [facility] Laboratory [address] [place] [address] George Alvarez MD Discharge Disposition: Home or Self Care 04/18/2025 Transcribe Orders [facility] Specimen Processing [address] [place] [address] George Alvarez MD Hydronephrosis with renal and ureteral calculous obstruction (Primary Dx); Urinary tract infection without hematuria, site unspecified; Acute pyelonephritis without lesion of renal medullary necrosis from Last 3 Months Immunizations Immunization Administration Dates Next Due Influenza High-Dose Trivalen t Preservative Free IM 06/24/2024(Deferred: Patient Refused) Social History Tobacco Use Types Packs/Day Years Used Date Smoking Tobacco: Never Assessed Education Answer Date Recorded Are you interested in more education? Not on agatha e 06/15/2024 Are you concerned about learning? Not on file 06/15/2024 No 06/15/2024 No 06/15/2024 Digital Access Answer Date Recorded No 06/15/2024 No 06/15/2024 Reliable internet access at home? Not on file 06/15/2024 Device with a working camera? Not on file Intimate Partner Violence Answer Date R ecorded Are you denied basic needs s uch as food, clothing, or medical care? No 10/22/2024 In the past 12 months have y ou been in a relationship with a person who hurts, threatens, or tries to control you? No 10/22/2024 Are you denied basic needs s uch as food, clothing, or medical care? No 10/22/2024 In the past 12 months have y ou been in a relationship with a person who hurts, threatens, or tries to control you? No 10/22/2024 Comments Unknown Sex and Gender Information Value Date Recorded Sex Assigned at Female 06/23/2024 10:10 AM EDT Legal Sex Female 5:13 PM EDT Gender Identity Female 06/23/2024 10:10 AM EDT Sexual Orientation Don't know 06/23/2024 10 :10 AM EDT Last Filed Vital Signs Vital Sign Reading Time Taken Comments Blood Pressure 122/73 12/27/2024 7:38 PM EDT Pulse 77 12/27/2024 7:38 PM EDT Temperature 36.2 C (97.2 F) 12/27/2024 7:38 PM EDT Respiratory Rate 16 12/27/2024 7:38 PM EDT Oxygen Saturation 94% 12/27/2024 7:38 PM EDT Inhaled Oxygen Concentration - - Weight 65.8 kg (145 lb) 02/10/2025 10:47 AM EDT Height 175.3 cm (5' 9 ) 02/10/2025 10:47 AM EDT Body Mass Index 21.41 02/10/2025 10:47 AM EDT Plan of Treatment Upcoming Encounters Date Type Department Care Team (Late st Contact Info) Description 08/03/2025 1:00 PM EST Office Visit [facility] [address] [place] [address] Unknown, Unknown, MD Yarbrough, Maddie Vu, TIRE CURER [address] [place] [address] 07/12/2026 9:30 AM EST Office Visit [facility] Neurology [address] [place] [address] Nura Brandt MD [address] [place] [address], [address] [place] [address] [email or web address] Health Maintenance Due Date Last Done Comments Adult Td,Tdap Booster 1958 LIPID PANEL 1958 DEPRESSION SCREENING 1970 SMOKING Hx and SMOKELESS TOB ACCO SCREENING 1971 HEPATITIS C SCREENING 1976 MAMMOGRAM 1998 COLOGUARD 2003 COLONOSCOPY 2003 COLORECTAL CANCER SCREENING 2003 FIT TEST 2003 FOBT 2003 SIGMOIDOSCOPY 2003 VIRTUAL COLONOSCOPY 2003 PNEUMOCOCCAL VACCINES (50+ y ears) (1 of 1 - PCV) 2008 ZOSTER VACCINES (1 of 2) 2008 OSTEOPOROSIS SCREENING INITI AL (ONE-TIME) 2023 INFLUENZA VACCINE (#1) 2025 COVID-19 VACCINE ( - 2024-2 6 season) 2025 RSV VACCINE (1 - 1-dose 75+ series) 2033 HEPATITIS A VACCINES Aged Out No long er eligible based on patient's age to complete this topic HIB VACCINES Aged Out No longer eligi ble based on patient's age to complete this topic MENINGOCOCCAL VACCINES (ACWY) Aged Out No longer eligible based on patient's age to complete this topic MENINGOCOCCAL VACCINES (B) Aged Out N o longer eligible based on patient's age to complete this topic Medical Devices Not on file Procedures Procedure Name Priority Date/Time Associated Diagnosis Comments CBC AND DIFFERENTIAL Routine 05/26/2025 5:21 AM EDT Diabetes mellitus of other type without complication, unspecified whether halfway insulin use Essential hypertension, malignant COMPREHENSIVE METABOLIC PANEL Routine 05/26/2025 5:21 AM EDT Diabetes mellitus of other type without complication, unspecified whether oil heaterman insulin use Essential hypertension, malignant HEMOGLOBIN A1C Routine 05/26/2025 5:21 AM EDT Diabetes mellitus of other type without complication, unspecified whether halfway insulin use Essential hypertension, malignant TSH Routine 05/26/2025 5:21 AM EDT Diabetes mellitus of other type without complication, unspecified whether oil heaterman insulin use Essential hypertension, malignant LIPASE Routine 04/18/2025 6:00 AM EDT Hydronephrosis with renal and ureteral calculous obstruction Urinary tract infection without hematuria, site unspecified Acute pyelonephritis without lesion of renal medullary necrosis C-REACTIVE PROTEIN Routine 04/18/2025 6: 00 AM EDT Hydronephrosis with renal and ureteral calculous obstruction Urinary tract infection without hematuria, site unspecified Acute pyelonephritis without lesion of renal medullary necrosis SEDIMENTATION RATE (ESR) Routine 04/18/2025 6:00 AM EDT Hydronephrosis with renal and ureteral calculous obstruction Urinary tract infection without hematuria, site unspecified Acute pyelonephritis without lesion of renal medullary necrosis COMPREHENSIVE METABOLIC PANEL Routine 04/18/2025 6:00 AM EDT Hydronephrosis with renal and ureteral calculous obstruction Urinary tract infection without hematuria, site unspecified Acute pyelonephritis without lesion of renal medullary necrosis CBC AND DIFFERENTIAL Routine 04/18/2025 6:00 AM EDT Hydronephrosis with renal and ureteral calculous obstruction Urinary tract infection without hematuria, site unspecified Acute pyelonephritis without lesion of renal medullary necrosis from Last 3 Months Results * (ABNORMAL) Comprehensive metabolic panel (05/26/2025 5:21 AM EDT) Only the most recent of2 resultswithin the time period is included. SODIUM 142 133 - 146 mmol/L [facility] POTASSIUM 4.6 3.3 - 5.1 mmol/L [facility] CHLORIDE 105 96 - 108 mmol/L [facility] CO2 28 21 - 35 mmol/L [facility] BUN 15 6 - 19 mg/dL [facility] CREATININE 0.70 0.5 - 1.5 mg/dL [facility] GLUCOSE 89 70 - 99 mg/dL [facility] ALBUMIN 3.7(L) 3.9 - 4.8 g/dL [facility] TOTAL PROTEIN 6.1(L) 6.5 - 8.0 g/dL [facility] CALCIUM 8.8 8.4 - 10.3 mg/dL [facility] ALKALINE PHOSPHATASE 69 39 - 117 U/L [facility] TOTAL BILIRUBIN <0.2 0.0 - 1.2 mg/dL [facility] AST 16 0 - 37 U/L [facility] ALT 8 0 - 40 U/L [facility] GLOBULIN 2.4 1 - 4.8 g/dL [facility] EGFR 95 >59 mL/min/1.7 3m2 [facility] Comment:Estimated glomerular filtration rate calculated using the CKD-EPI refit equation. ANION GAP 14 10 - 20 mmol/L [facility] Blood 05/26/2025 5:21 AM EDT 05/26/2025 7:27 AM EDT us George Alvarez MD LAB BLOOD ORDERABLES Final Resul t [facility] [address] [place] [address] * (ABNORMAL) CBC and differential (05/26/2025 5:21 AM EDT) Only the most recent of2 resultswithin the time period is included. WBC 3.93(L) 4.00 - 11.00 K/uL [facility] RBC 3.67(L) 4.00 - 5.20 M/uL [facility] HGB 11.8(L) 12.0 - 16.0 g/dL [facility] HCT 36.6 36.0 - 46.0 % [facility] PLT 152 150 - 450 K/uL [facility] MCV 99.7 80.0 - 100.0 fL [facility] MCH 32.2(H) 27.0 - 31.0 pg [facility] MCHC 32.2 32.0 - 36.0 g/dL [facility] RDW 11.9 11.5 - 14.5 % [facility] MPV 9.8 8.4 - 12.0 fL [facility] NRBC 0.00 0.00 /100 WBCs [facility] ABSOLUTE NRBC 0.00 0.00 K/uL [facility] DIFF METHOD Auto [facility] NEUTS 51.4 48.0 - 76.0 % [facility] LYMPHS 27.7 18.0 - 41.0 % [facility] MONOS 15.3(H) 4.0 - 11.0 % [facility] EOS 4.8 0.0 - 5.0 % [facility] BASOS 0.5 0.0 - 1.5 % [facility] Granulocytes, immature (%) 0.3 0.0 - 0.9 % [facility] ABSOLUTE NEUTS 2.02 1.92 - 7.60 K/uL [facility] ABSOLUTE LYMPHS 1.09 0.72 - 4.10 K/uL [facility] ABSOLUTE MONOS 0.60 0.16 - 1.10 K/uL [facility] ABSOLUTE EOS 0.19 0.00 - 0.50 K/uL [facility] ABSOLUTE BASOS 0.02 0.00 - 0.15 K/uL [facility] Granulocytes, immature 0.01 0.00 - 0.09 K/uL [facility] Blood 05/26/2025 5:21 AM EDT 05/26/2025 7:27 AM EDT us George Alvarez MD LAB BLOOD ORDERABLES Final Resul t Performing Organization Address City/[facility]/ZIP Co de Phone Number [address] [address] * TSH (05/26/2025 5:21 AM EDT) TSH 0.50 0.27 - 4.20 uIU/mL [facility] Blood 05/26/2025 5:21 AM EDT 05/26/2025 7:27 AM EDT us George Alvarez MD LAB BLOOD ORDERABLES Final Resul t Performing Organization Address [facility] Co de Phone Number [address] [address] * Hemoglobin A1c (05/26/2025 5:21 AM EDT) HEMOGLOBIN A1C 5.1 4.3 - 5.8 % [facility] Blood 05/26/2025 5:21 AM EDT 05/26/2025 7:27 AM EDT us George Alvarez MD LAB BLOOD ORDERABLES Final Resul t Performing Organization Address [facility]/ZIP Co de Phone Number [address] [address] * Sedimentation rate (ESR) (04/18/2025 6:00 AM EDT) ESR 14 0 - 30 mm/h [facility] 04/18/2025 6:00 AM EDT 04/18/2025 8:17 AM EDT us George Alvarez MD LAB BLOOD ORDERABLES Final Resul t Performing Organization Address [facility]/ZIP Co de Phone Number [address] [address] * C-Reactive Protein (04/18/2025 6:00 AM EDT) C REACTIVE PROTEIN <3.0 0.0 - 4.0 mg/L [facility] 04/18/2025 6:00 AM EDT 04/18/2025 8:17 AM EDT us George Alvarez MD LAB BLOOD ORDERABLES Final Resul t Performing Organization Address City/[facility] de Phone Number [address] [address] * Lipase (04/18/2025 6:00 AM EDT) LIPASE 33 16 - 63 U/L [facility] 04/18/2025 6:00 AM EDT 04/18/2025 8:17 AM EDT George Alvarez MD LAB BLOOD ORDERABLES Final Resul t Performing Organization Address [facility] de Phone Number [address] [address] from Last 3 Months Insurance MEDICARE PART A & B [id number] & [facility] A & [facility] [place] [id number] Advance Directives For more information, please contact: [phone] (9AM - 5PM [facility], Thursday-Thursday) Documents on File Type Date Recorded Patient Environmental Science Technician Expl anation Healthcare Proxy 06/27/2024 4:39 PM Care Teams Solder Sprayer Relationship Specialty Start Date End Date George Alvarez MD [address] [facility], [address] [place] [phone] [email or web address] PCP - General Family Medicine 06/14/24 Additional Source Comments The information contained in this document represents components of the legal health record. It is not the complete legal health record.[facility]
--- OUTSIDE RECORDS SUMMARY | 2025-06-22 14:43 | XMS_ITS | Encounter Summary ---
Author Organization [facility] Address [address] [facility] [address] [place] [address] Phone Care Team Providers Care Wood Chopper Name Role Phone George Alvarez MD Primary Care Provider [phone] Reason for Referral * MRI/CAT Scan - Pending Review Specialty Diagnoses / Procedures Referred By Stu brownlee Referred To Contact Radiology Diagnoses Dysphagia, unspecified type Weakness Procedures MRI Cervical Spine Carolyne Ryan NP [address] [place] [address] Phone: tel: fax: mailto:[email or web address] Referral ID Status Reason Start Date Expiration Date V isits Requested Visits Authorized [id number] Pending Review 10/20/2024 10/20/2025 1 1 Encounter Details Date Type Department Care Team (Latest Contact Info) Description 10/20/2024 Transcribe Orders Virtual Department [address] [place] [address] Carolyne Ryan NP [address] [place] [address] [email or web address] Dysphagia, unspecified type (Primary Dx); Weakness Social History Tobacco Use Types Packs/Day Years [...] Don't know 06/23/2024 10 :10 AM EDT documented as of this encounter Functional Status * Calculated C-SSRS Risk Score (Lifetime/Recent) Answer Date of Assessment Author No Risk Indicated 10/22/2024 6:24 PM Luis Carlos Asif RN * [place] Suicide Severity Rating Scale (Screener/Recent Self-Report) Question Answer Date of Assessment Author 1. Wish to be (Past 1 Month) No 025 6:24 PM Luis Carlos Asif, MATHEUS 2. Non-Specific Active Suici yolanda Thoughts (Past 1 Month) No 10/22/2024 6:24 PM Rafael Asif, RN 6. Suicidal Behavior (Lifetime) No 6:24 PM Luis Carlos Asif, RN documented as of this encounter Plan of Treatment Upcoming Encounters Date Type Department Care Team (Late st Contact Info) Description 08/03/2025 1:00 PM EST Office Visit [facility] [address] [place] [address] Unknown, Unknown, Maddie Lilly NP [address] [place] [address] 07/12/2026 9:30 AM EST Office Visit [facility] Neurology [address] [place] [address] Nura Brandt MD [address] [facility], 2nd [place] [address] [email or web address] documented as of this encounter Results * MRI CERVICAL SPINE (NEURO) FOCUS WITHOUT CONTRAST (12/05/2024 3:20 PM EDT) MGB IMG EDUCATION SPEC COMMENT 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 [facility] MGB IMG RECOMMENDATION COMMENT Dorsal column signal abnormality extending inferiorly from c-spine [facility] Anatomical Region Laterality Modality C-spine Magnetic Resonan ce 12/07/2024 9:10 AM EDT Impressions 12/07/2024 9:29 AM EDT 1. Post surgical changes related to anterior discectomy and fusion at C5-C6 level. 2. There is increased T2 signal along the dorsal columns of the spinal cord spanning from C2 level and extending inferiorly outside [id number]. Findings may represent toxic/metabolic process (i.e. subacute combined degeneration) vs. sequelae of prior insult/injury. 3. Mild degenerative changes of the cervical spine without evidence of high-grade spinal canal narrowing. Degenerative changes contribute to moderate left neuroforaminal narrowing at C4-C5 level. RECOMMENDATIONS: Clinical and laboratory correlation and consider MRI thoracic spine with and without contrast to assess the full extent of cord signal abnormality. A clinically significant result was initiated on 12/07/2024 9:29 AM, Message ID [id number]. Narrative 12/07/2024 9:29 AM EDT MRI CERVICAL SPINE (NEURO) FOCUS WITHOUT CONTRAST Referring clinician's provided indication for this examination in Epic: Outside Radiology Order; spinal cord injury TECHNIQUE: MRI CERVICAL SPINE (NEURO) FOCUS WITHOUT CONTRAST COMPARISON: None available. FINDINGS: Alignment and Vertebrae: Patient is status post anterior discectomy and fusion at C5-C6 level. Osseous fusion is seen across C5-C6 level. Susceptibility artifact associated with the hardware limits the evaluation of adjacent structures. There is mild straightening of the usual cervical lordosis. Mild anterolisthesis of C3 on C4, C4-C5, and C7 on T1 are seen. No compression fracture. Marrow: No suspicious bone marrow replacing lesion. Discs and Endplates: Mild intervertebral disc height loss and loss of normal T2 disc signal are seen . Spinal Cord: No spinal cord compression. There is increased T2 signal throughout the dorsal paramedian aspect of the spinal cord spanning from C2 level and extending inferiorly outside pdhqd-[id number]. There is also mild volume loss throughout the visualized spinal cord. Soft Tissue: No prevertebral edema. Findings by level: C2-C3: Mild bilateral facet arthropathy is noted. No spinal canal or neuroforaminal narrowing. C3-C4: Posterior disc osteophyte complex, moderate bilateral facet arthropathy, and mild bilateral uncovertebral hypertrophy are seen. These contribute to low-grade spinal canal narrowing and mild bilateral neuroforaminal narrowing. C4-C5: Posterior disc osteophyte complex, moderate bilateral facet arthropathy, and mild bilateral uncovertebral hypertrophy are seen. These contribute to low-grade spinal canal narrowing and moderate left neuroforaminal narrowing. C5-C6: Moderate bilateral facet arthropathy and moderate bilateral uncovertebral hypertrophy are seen. These contribute to low-grade spinal canal narrowing and mild bilateral neuroforaminal narrowing. C6-C7: Posterior disc osteophyte complex, asymmetric to the left, mild bilateral facet arthropathy, and mild bilateral uncovertebral hypertrophy are seen. These contribute to low-grade spinal canal narrowing. No neuroforaminal narrowing. C7-T1: Mild bilateral facet arthropathy is noted. No spinal canal or neuroforaminal narrowing. Procedure Note Young Chew MD - 12/07/2024 MRI CERVICAL SPINE (NEURO) FOCUS WITHOUT CONTRAST Referring clinician's provided indication for this examination in Epic:Outside Radiology Order; spinal cord injury TECHNIQUE: MRI CERVICAL SPINE (NEURO) FOCUS WITHOUT CONTRAST COMPARISON: None available. FINDINGS: Alignment and Vertebrae: Patient is status post anterior discectomy andfusion at C5-C6 level. Osseous fusion is seen across C5-C6 level.Susceptibility artifact associated with the hardware limits the evaluationof adjacent structures. There is mild straightening of the usual cervical lordosis. Mildanterolisthesis of C3 on C4, C4-C5, and C7 on T1 are seen. No compression fracture. Marrow: No suspicious bone marrow replacing lesion. Discs and Endplates: Mild intervertebral disc height loss and loss ofnormal T2 disc signal are seen . Spinal Cord: No spinal cord compression. There is increased T2 signalthroughout the dorsal paramedian aspect of the spinal cord spanning fromC2 level and extending inferiorly outside oqdrb-kq-svlz. There is alsomild volume loss throughout the visualized spinal cord. Soft Tissue: No prevertebral edema. Findings by level: C2-C3: Mild bilateral facet arthropathy is noted. No spinal canal orneuroforaminal narrowing. C3-C4: Posterior disc osteophyte complex, moderate bilateral facetarthropathy, and mild bilateral uncovertebral hypertrophy are seen. Thesecontribute to low-grade spinal canal narrowing and mild bilateralneuroforaminal narrowing. C4-C5: Posterior disc osteophyte complex, moderate bilateral facetarthropathy, and mild bilateral uncovertebral hypertrophy are seen. Thesecontribute to low-grade spinal canal narrowing and moderate leftneuroforaminal narrowing. C5-C6: Moderate bilateral facet arthropathy and moderate bilateraluncovertebral hypertrophy are seen. These contribute to low-grade spinalcanal narrowing and mild bilateral neuroforaminal narrowing. C6-C7: Posterior disc osteophyte complex, asymmetric to the left, mildbilateral facet arthropathy, and mild bilateral uncovertebral hypertrophyare seen. These contribute to low-grade spinal canal narrowing. Noneuroforaminal narrowing. C7-T1: Mild bilateral facet arthropathy is noted. No spinal canal orneuroforaminal narrowing. IMPRESSION: 1. Post surgical changes related to anterior discectomy and fusion atC5-C6 level. 2. There is increased T2 signal along the dorsal columns of the spinalcord spanning from C2 level and extending inferiorly [id number]. Findings may represent toxic/metabolic process (i.e.subacute combined degeneration) vs. sequelae of prior insult/injury. 3. Mild degenerative changes of the cervical spine without evidence ofhigh-grade spinal canal narrowing. Degenerative changes contribute tomoderate left neuroforaminal narrowing at C4-C5 level. RECOMMENDATIONS: Clinical and laboratory correlation and consider MRI thoracic spine withand without contrast to assess the full extent of cord signalabnormality. A clinically significant result was initiated on 12/07/2024 9:29 AM, MessageID [id number]. November Renetta Mana Starks INSTRUMENTATION DESIGNER IMG MR XSPECIALT Y Final Result documented in this encounter Visit Diagnoses Diagnosis Dysphagia, unspecified type- Primary Weakness Other malaise and fatigue Dysphagia, unspecified type Weakness Other malaise and fatigue documented in this encounter Care Teams Wood Chopper Relationship Specialty Start Date End Date George Alvarez MD [address] [place] [address] [address] [place] [address] [email or web address] PCP - General Family Medicine 06/14/24 documented as of this encounter Additional Source Comments The information contained in this document represents components of the legal health record. It is not the complete legal health record.[facility]
--- OUTSIDE RECORDS SUMMARY | 2025-06-22 14:43 | XMS_ITS | Encounter Summary ---
Author Organization [facility] Address [address] [facility] [address] [place] [address] Phone Care Team Providers Care Timber Estimator Name Role Phone George Alvarez MD Primary Care Provider [phone] Encounter Details Date Type Department Care Team (Late st Contact Info) Description 10/20/2024 Procedure Pass [facility], [address] [place] [address] Social History Tobacco Use Types Packs/Day Years [...] Risk Indicated 10/22/2024 6:24 PM Luis Carlos Asif, MATHEUS * [place] Suicide Severity Rating Scale (Screener/Recent Self-Report) Question Answer Date of Assessment Author 1. Wish to be (Past 1 Month) No 025 6:24 PM Luis Carlos Asif, MATHEUS 2. Non-Specific Active Suici yolanda Thoughts (Past 1 Month) No 10/22/2024 6:24 PM Rafael Asif RN 6. Suicidal Behavior (Lifetime) No 6:24 PM Luis Carlos Asif, MATHEUS documented as of this encounter Plan of Treatment Upcoming Encounters Date Type Department Care Team (Late st Contact Info) Description 08/03/2025 1:00 PM EST Office Visit [facility] [address] [place] [address] Unknown, Unknown, MD Yarbrough, Maddie Vu NP [address] [place] [address] 07/12/2026 9:30 AM EST Office Visit [facility] Neurology [address] [place] [address] Nura Brandt MD [address] [place] [address], [address] [place] [address] [email or web address] documented as of this encounter Visit Diagnoses Not on filedocumented in this encounter Care Teams Timber Estimator Relationship Specialty Start Date End Date George Alvarez MD [address] [place] [address], [address] [place] [phone] [email or web address] PCP - General Family Medicine 10/15/24 documented as of this encounter Additional Source Comments The information contained in this document represents components of the legal health record. It is not the complete legal health record.[facility]
--- OUTSIDE RECORDS SUMMARY | 2025-06-22 14:43 | XMS_ITS | Encounter Summary ---
Author Organization [facility] Address [address] [facility] [address] [place] [address] Phone Care Team Providers Care Gre Tutor Name Role Phone George Alvarez MD Primary Care Provider [phone] Encounter Details Date Type Department Care Team (Late st Contact Info) Description 01/19/2025 Procedure Pass [facility], [address] [address] Social History Tobacco Use Types Packs/Day Years [...] AM EDT documented as of this encounter Plan of Treatment Upcoming Encounters Date Type Department Care Team (Late st Contact Info) Description 08/03/2025 1:00 PM EST Office Visit [facility] Gastroenterology Clinic [address] [place] [address] Unknown, Unknown, Maddie Lilly, KELSIE [address] [place] [address] 07/12/2026 9:30 AM EST Office Visit [facility] Neurology [address] [place] [address] Nura Brandt MD [address] [facility], 2nd [place] [address] [email or web address] documented as of this encounter Visit Diagnoses Not on filedocumented in this encounter Care Teams Gre Tutor Relationship Specialty Start Date End Date George Alvarez MD [address] [place] [address], [address] [place] [address] [email or web address] PCP - General Family Medicine 06/14/24 documented as of this encounter Additional Source Comments The information contained in this document represents components of the legal health record. It is not the complete legal health record.[facility]
--- OUTSIDE RECORDS SUMMARY | 2025-06-22 14:43 | XMS_ITS | Clinical Summary ---
Author Organization [facility] it Address [address] [place] [address] Care Team Providers Care Supervisor Customer Services Name Role Phone Diana La MD Primary Care Provider [phone] Medications thiamine 100 mg tablet Take 1 [...] 10/12/2007 Overview (07/07/2024): Had back surgery Immunizations Immunization Administration Dates Next Due Hep B, Unspecified [...] Date Smoking Tobacco: Never Assessed Cigarettes 0.8 43.7 Started: 1983 Alcohol Use Standard Drinks/Week Comments [...] for your loved ones. For example, child psychologist or elderly care for an older adult? [...] Date Recorded What is your living situation? Unrecognized valu e 09/19/2024 Comments Unknown Sex and Gender Information [...] 3 - 19+ 3-dose series) 07/23/2016 06/25/2016 Colorectal Cancer Screening: Colonoscopy 08/15/2020 08/15/2015 DTaP,Tdap,and Td Vaccines (2 - Td or Tdap) 04/19/2022 04/19/2012 Breast Cancer Screening 05/22/2022 05/22/20 20, 05/17/2019, 05/12/2018, Additional history exists Hepatitis C Screening 08/03/2022 Osteoporosis Screening (Bone Density Screening) 08/03/2022 Falls Risk Assessment 2023 COVID-19 Vaccine ( season) 2025 Influenza Vaccine (#1) 2025 8, 06/04/2015, 07/04/2014, Additional history exists Social Influencers of Health Screening 09/19/2025 09/19/2024 RSV Immunization Adult Patients (1 - 1-dose 75+ series) 2033 Depression Screening Completed 09/19/2024 HIB Vaccines Aged Out No longer eligi [...] to 11/15/2007 with most recent of 05/17/2019. The breast tissue is dense, limiting sensitivity. No suspicious mass, architectural distortion or suspicious calcifications are identified. IMPRESSION: : Dense breast tissue, limiting the sensitivity of mammography. No mammographic evidence of malignancy. BIRADS 1-Negative; N. [...] % Breast cancer risk category Low (<15%) Ashley Duggan MD IMG XR PROCEDURES Fi nal Result from Last 3 Months or Most Recently Relevant to Health Maintenance Care Teams Supervisor Customer Services Relationship Specialty Start Date End Date Diana La MD PCP - General 12/04/23
--- OUTSIDE RECORDS SUMMARY | 2025-06-22 14:43 | XMS_ITS | Encounter Summary ---
Author Organization [facility] Address [address] [address] Phone Care Team Providers Care Emr Trainer Name Role Phone George Alvarez MD Primary Care Provider [phone] Encounter Details Date Type Department Care Team (Late st Contact Info) Description 06/23/2024 Procedure Pass [facility], Ct Scan - [address] [address] Social History Tobacco Use Types Packs/Day Years [...] with a working camera? Not on file Comments Unknown Sex and Gender Information Value Date Recorded Sex Assigned at Female 06/23/2024 10:10 AM EDT Legal Sex Female 5:13 PM EDT Gender Identity Female 06/23/2024 10:10 AM EDT Sexual Orientation Don't know 06/23/2024 10 :10 AM EDT documented as of this encounter Functional Status * Calculated C-SSRS Risk Score (Lifetime/Recent) Answer Date of Assessment Author No Risk Indicated 06/23/2024 9:21 AM EDT Una Louis, MATHEUS * [place] Suicide Severity Rating Scale (Screener/Recent Self-Report) Question Answer Date of Assessment Author 1. Wish to be (Past 1 Month) No 06/23/2024 9:21 AM EDT Una Louis RN 2. Non-Specific Active Suici yolanda Thoughts (Past 1 Month) No 06/23/2024 9:21 AM EDT Una Louis RN 6. Suicidal Behavior (Lifetime) No 9:21 AM EDT Una Louis, MATHEUS documented as of this encounter Plan of Treatment Upcoming Encounters Date Type Department Care Team (Late st Contact Info) Description 08/03/2025 1:00 PM EST Office Visit [facility] Gastroenterology Clinic [address] [place] [address] Unknown, Unknown, Maddie Lilly NP [address] [place] [address] 07/12/2026 9:30 AM EST Office Visit [facility] Neurology [address] [place] [address] Nura Brandt MD [address] [place] [address], 2[address] [place] [address] [email or web address] documented as of this encounter Visit Diagnoses Not on filedocumented in this encounter Care Teams Emr Trainer Relationship Specialty Start Date End Date George Alvarez MD [address] [place] [address], [address] [place] [phone] [email or web address] PCP - General Family Medicine 06/14/24 documented as of this encounter Additional Source Comments The information contained in this document represents components of the legal health record. It is not the complete legal health record.[facility]
--- OUTSIDE RECORDS SUMMARY | 2025-06-22 14:43 | XMS_ITS | Encounter Summary ---
Author Organization [facility] Address [address] [facility] [address] [place] [phone] Phone Care Team Providers Care Insulation Cutter Name Role Phone George Alvarez MD Primary Care Provider [phone] Reason for Referral * MRI/CAT Scan - Closed Specialty Diagnoses / Procedures Referred By Contdana t Referred To Contact Radiology Diagnoses Abnormal MRI, spinal cord Procedures MRI Thoracic Spine Carolyne Ryan NP [address] [place] [address] Phone: tel: fax: mailto:[email or web address] Referral ID Status Reason Start Date Expiration Date Visits Re quested Visits Authorized [id number] Closed 01/19/2025 01/19/2026 1 1 Encounter Details Date Type Department Care Team (Latest Contact Info) Description 01/19/2025 Transcribe Orders Virtual Department [address] [place] [address] Carolyne Ryan NP [address] [place] [address] [email or web address] Abnormal MRI, spinal cord (Primary Dx) Social History Tobacco Use Types Packs/Day Years [...] Description 08/03/2025 1:00 PM EST Office Visit [facility] [address] [place] [address] Unknown, Unknown, MD Yarbrough, Maddie Vu, KELSIE [address] [place] [address] 07/12/2026 9:30 AM EST Office Visit [facility] Neurology [address] [place] [address] [place] [address] Nura Brandt MD [address] [facility], 2nd [place] [address] [email or web address] documented as of this encounter Results * MRI THORACIC SPINE (NEURO) WITH AND WITHOUT CONTRAST (02/13/2025 3:36 PM EDT) [facility] IMG PLATER SUPERVISOR COMMENT see report [facility] Anatomical Region Laterality Modality T-spine Magnetic Resonan ce 02/15/2025 10:5 8 AM EDT Addenda Addendum by Yvonne Jauregui MD on 02/21/2025 6:53 PM EDT ADDENDUM: ADDENDUM: COMPARISON: Cervical spine MRI December 05, 2024. Thoracic spine MRI December 08, 2023. FINDINGS/IMPRESSION: -Since thoracic spine MRI of December 08, 2023 there is evolution of the T10 compression fracture with resolution of the marrow edema on further loss of body height from 25% on previous study to 50% in this exam. Mild retropulsion or angulation at this level is grossly stable and a degree of canal stenosis at this level is unchanged. -Thoracic spine MRI of December 08, 2023 is significantly degraded by motion artifact limiting the evaluation of the cord signal and unfortunately this may be difficult the evaluation and comparison of the cord signal, which is partially seen in some of the axial T2-weighted sequences of prior exam but difficult to be completely evaluated and compared due to the motion. A clinically significant result was initiated on 02/21/2025 6:53 PM, Message ID [id number]. Addendum by Yvonne Jauregui MD on 02/16/2025 11:02 PM EDT ADDENDUM: COMPARISON: Cervical spine MRI December 05, 2024. Report of outside thoracic spine MRI of 12/08/2023. Impressions 02/15/2025 11:19 AM EDT 1. Extensive T2 signal hyperintensity in the dorsal cord extending from the cervical cord to the T12 level, without expansion or abnormal enhancement, with differential as above. 2. T10 chronic compression fracture with kyphotic angulation and mild canal stenosis. 3. No acute compression fracture. 4. Scattered degenerative changes in the thoracic spine, as above. 5. Hiatal hernia. 6. Probable renal cysts. A clinically significant result was initiated on 02/15/2025 11:18 AM, Message ID [id number]. Narrative 02/15/2025 11:19 AM EDT MRI THORACIC SPINE (NEURO) WITH AND WITHOUT CONTRAST Referring clinician's provided indication for this examination in Epic: Outside Radiology Order; cord signal abnormality TECHNIQUE: MRI THORACIC SPINE (NEURO) WITH AND WITHOUT CONTRAST Multi-sequence, multi-planar MRI of the thoracic spine was performed with and without intravenous contrast. COMPARISON: Cervical spine MRI December 05, 2024. FINDINGS: THORACIC SPINE: Alignment and Vertebrae: There is exaggerated kyphotic curvature of the thoracic spine centered at T10-T11 likely due to chronic compression fracture at T10 with 50% of loss of body height with minimal retropulsion of the inferior endplate posteriorly. There is mild retrolisthesis at L1-L2. Other vertebral bodies are mostly normal alignment. Other vertebral bodies demonstrate normal height. No acute compression fracture. Marrow: No bone marrow replacing lesion. Discs and Endplates: There are scattered degenerative changes in the palate at multiple levels. At T2-T3 there is a small left paracentral disc protrusion. A small right paracentral disc protrusion seen at T5-T6, T9-T10. Additional left paracentral disc protrusion at T6-T7. There is mild spinal canal stenosis at T10-T11 due to the angulation and chronic compression fracture deformity. No other level with significant canal stenosis otherwise identified in the thoracic spine. There is mild canal stenosis at C6-C7. There is possible mild foramina stenosis in the midthoracic spine but no high- grade foraminal stenosis noted. Spinal Cord: No wanda cord compression. There is T2 signal hyperintensity in the dorsal cord extending from the cervical cord inferiorly to the T12 level, without expansion. Differential considerations including toxic or metabolic causes (subacute combined degeneration), myelitis, infectious (HIV, syphilis), or other processes. Contrast: No abnormal enhancement seen in the cord or in the spine. Soft Tissue: No prevertebral edema. Other Findings: Small hiatal hernia noted. Nonenhancing cortical T2 hyperintensity in the right kidney, likely cyst measuring up to 9 mm. Possibly additional smaller cyst on the left renal cortex measuring 4 mm. Procedure Note Yvonne Jauregui MD / System, Provider Not In, PhD - 02/15/2025 MRI THORACIC SPINE (NEURO) WITH AND WITHOUT CONTRAST Referring clinician's provided indication for this examination in Epic:Outside Radiology Order; cord signal abnormality TECHNIQUE: MRI THORACIC SPINE (NEURO) WITH AND WITHOUT CONTRAST Multi-sequence, multi-planar MRI of the thoracic spine was performed withand without intravenous contrast. COMPARISON: Cervical spine MRI December 05, 2024. FINDINGS: THORACIC SPINE: Alignment and Vertebrae: There is exaggerated kyphotic curvature of thethoracic spine centered at T10-T11 likely due to chronic compressionfracture at T10 with 50% of loss of body height with minimal retropulsionof the inferior endplate posteriorly. There is mild retrolisthesis atL1-L2. Other vertebral bodies are mostly normal alignment. Other vertebralbodies demonstrate normal height. No acute compression fracture. Marrow: No bone marrow replacing lesion. Discs and Endplates: There are scattered degenerative changes in thepalate at multiple levels. At T2-T3 there is a small left paracentral discprotrusion. A small right paracentral disc protrusion seen at T5-T6,T9-T10. Additional left paracentral disc protrusion at T6-T7. There is mild spinal canal stenosis at T10-T11 due to the angulation andchronic compression fracture deformity. No other level with significant canal stenosis otherwise identified in thethoracic spine. There is mild canal stenosis at C6-C7. There is possible mild foramina stenosis in the midthoracic spine but nohigh- grade foraminal stenosis noted. Spinal Cord: No wanda cord compression. There is T2 signal hyperintensityin the dorsal cord extending from the cervical cord inferiorly to the Q20izban, without expansion. Differential considerations including toxic ormetabolic causes (subacute combined degeneration), myelitis, infectious(HIV, syphilis), or other processes. Contrast: No abnormal enhancement seen in the cord or in the spine. Soft Tissue: No prevertebral edema. Other Findings: Small hiatal hernia noted. Nonenhancing cortical [id number] in the right kidney, likely cyst measuring up to 9 mm.Possibly additional smaller cyst on the left renal cortex measuring 4mm. IMPRESSION: 1. Extensive T2 signal hyperintensity in the dorsal cord extending fromthe cervical cord to the T12 level, without expansion or abnormalenhancement, with differential as above. 2. T10 chronic compression fracture with kyphotic angulation and mildcanal stenosis. 3. No acute compression fracture. 4. Scattered degenerative changes in the thoracic spine, as above. 5. Hiatal hernia. 6. Probable renal cysts. A clinically significant result was initiated on 02/15/2025 11:18 AM,Message ID [id number]. November Renetta Villablay Raudel STRAND GALVANIZER IMG MR XSPECIALT Y Edited Result - Final documented in this encounter Visit Diagnoses Diagnosis Abnormal MRI, spinal cord- Primary Abnormal MRI, spinal cord documented in this encounter Care Teams Insulation Cutter Relationship Specialty Start Date End Date George Alvarez MD [address] [place] [address], [facility] [address] [place] [phone] [email or web address] PCP - General Family Medicine 06/14/24 documented as of this encounter Additional Source Comments The information contained in this document represents components of the legal health record. It is not the complete legal health record.[facility]
--- OUTSIDE RECORDS SUMMARY | 2025-06-22 14:43 | XMS_ITS | Clinical Summary ---
Author Organization [facility] Address [address] [place] [address] Care Team Providers Care Nuclear Technologist Name Role Phone Unavailable Primary Care Provider [...] 85 12/15/2023 5:30 AM EDT Temperature 36.8 C (98.2 F) 12/15/2023 5:30 AM EDT Respiratory Rate 20 12/15/2023 5:30 AM EDT [...] 1 - PCV) 2023 Influenza Vaccine (#1) 2025 8, 07/04/2014, 05/28/2009, Additional history exists RSV Adult > 60+ Yrs or (1 - 1-dose 75+ series) 2033 Hepatitis B Vaccines Aged Out No long er eligible based on patient's age to complete this topic RSV Ped < 20 months Aged Out No longe r eligible based on patient's age to complete this topic
== END 2025-06-22 12:21 | disposition home or self-care (01) ==
LOC: HO.HUSH 11:32
PROVIDERS: Visit Provider Urology
DX: N20.0 Calculus of kidney (principal)
CPT/HCPCS: 99213; G2211

== ENCOUNTER → 2025-06-22 11:32 | Outpatient (BNVA) | payer MEDICARE, SELFPAY | PROVIDERS: Visit Provider Urology | DX: N20.0 Calculus of kidney (principal); Z98.890 Other specified postprocedural states | CPT/HCPCS: 99212 ==